=== PATIENT | male | born 1950 | race Caucasian/White ===

== ENCOUNTER 2021-08-27 00:45 | Day surgery (SDC) | payer MEDICARE, BC, SELFPAY ==
[2021-08-11 14:51] VITALS: BMI 22.4
--- NOTE | 2021-08-26 13:58 | WPDANESEPPF ---
Anes - Initial Pre Proc Eval Procedure: Operation Date: 08/27/21 09:00 Proposed Procedures p Screening Colonoscopy - Kumar Ferrer MD Date/Time: 08/26/21 13:58 Surgeon: Kumar Ferrer MD Pre Op Diagnosis: hx of colon polyps Patient Data Age: 71 Gender: M Height: 1.68 m Weight: 63 kg Allergies Allergy/AdvReac Type Severity Reaction Status Date / Time No Known Allergies Allergy Verified 08/27/21 07:42 Home Medications Medication Instructions Recorded Confirmed Type Adult Low Dose Aspirin 81 mg PO DAILY 08/11/21 08/27/21 History Calcium-Vitamin D 2,500 units PO BID 08/11/21 08/27/21 History [place] 3 Fish Oil 600 mg PO DAILY 08/11/21 08/27/21 History lisinopril 10 mg PO DAILY 08/11/21 08/27/21 History magnesium citrate 200 mg PO DAILY 08/11/21 08/27/21 History metoprolol tartrate 12.5 mg PO BID 08/11/21 08/27/21 History niacin 500 mg PO DAILY 08/11/21 08/27/21 History vitamin K 90 mcg PO BID 08/11/21 08/27/21 History Patient hx anesthesia problems: none Family hx anesthesia problems: none Results Review: All pre-operative results and documents have been reviewed as part of the pre-operative evaluation. [facility] Past Medical History Medical History (Updated 08/27/21 @ 08:14 by Kumar Ferrer MD) Hypertension Surgical History Surgical History (Updated 08/26/21 @ 13:59 by Hardeep Sanchez DO) Hx of CABG Family History Family History (System 06/30/21 @ 13:28 by Joann Walker) Mother Hypertension Father Carcinoma of colon Social History Social History (System 06/30/21 @ 13:28 by Joann Walker) Smoking status: Never smoker Alcohol intake: former Alcohol use details: very rare- has not drank in 1.5 years Substance use: never Substance use type: does not use Living arrangements: with family Spiritual care concerns: No Anes - Eval Final PreProcedure Day of Procedure 08/26/21 13:58 Patient weight: normal Heart: regular rate and rhythm Lungs: clear to auscultation and normal air movement Airway: Mallampati scale class II Neurological: alert and oriented Last oral intake: >/= 8 hours ASA classification: III Emergent: no Anesthetic plan: proceed Anesthesia type and monitoring: general GIVS and standard monitoring Results Review: All pre-operative results and documents have been reviewed as part of the pre-operative evaluation. Informed Consent: The patient's anesthetic plan and its attendant risks and benefits were discussed with the patient/family/POA. Questions were solicited and answers provided to the satisfaction of the patient/family/POA.
[2021-08-27 07:43] VITALS: BP 165/70; PULSE 92; RESP 18; TEMP 36.8; O2SAT 99
[2021-08-27] MEDS: LACTATED RINGERS 1,000 ML 150 ML IV CONT (07:53)
--- NOTE | 2021-08-27 08:13 | P.CONGI_ITS ---
Assessment and Plan Assessment and plan (1) History of colon polyps: Code(s): Z86.010 - Personal history of colonic polyps Status: Acute Assessment and Plan: Patient is reported to have had a colon polyp by screening colonoscopy 10 years ago. Follow-up exam is planned today. (2) Family history of colon cancer in father: Code(s): Z80.0 - Family history of malignant neoplasm of digestive organs Status: Acute Assessment and Plan: Patient's father and grandparents have had colon cancer. Plan is for screening colonoscopy now and consider this a 5 year intervals. GI Consult Note Consult date/time: 08/27/21 08:13 HPI: Virgil Bower Jr. is a 71 year old male Presents for screening colonoscopy. Patient reports his current weight appetite bowel movements are normal. He denies abdominal pain. He has had no bleeding. Family history is significant his father had colon cancer his grandparent also had colon cancer. Patient reports having had a colon polyp by a screening exam tender 11 years ago. Most recent exam 5 years ago was unremarkable. He presents today for neoplasia screening. Review of Systems Review of Systems: All systems reviewed & are unremarkable except as noted in HPI and below PMFSH Past Medical History Medical History (Updated 08/27/21 @ 08:14 by Kumar Ferrer MD) Hypertension Surgical History Surgical History (Updated 08/26/21 @ 13:59 by Hardeep Sanchez DO) Hx of CABG Family History Family History (System 06/30/21 @ 13:28 by Joann Walker) Mother Hypertension Father Carcinoma of colon Social History Social History (System 06/30/21 @ 13:28 by Joann Walker) Smoking status: Never smoker Alcohol intake: former Alcohol use details: very rare- has not drank in 1.5 years Substance use: never Substance use type: does not use Living arrangements: with family Spiritual care concerns: No Meds Home Medications and Allergies Home Medications Medication Instructions Recorded Confirmed Type Adult Low Dose Aspirin 81 mg PO DAILY 08/11/21 08/27/21 History Calcium-Vitamin D 2,500 units PO BID 08/11/21 08/27/21 History [place] 3 Fish Oil 600 mg PO DAILY 08/11/21 08/27/21 History lisinopril 10 mg PO DAILY 08/11/21 08/27/21 History magnesium citrate 200 mg PO DAILY 08/11/21 08/27/21 History metoprolol tartrate 12.5 mg PO BID 08/11/21 08/27/21 History niacin 500 mg PO DAILY 08/11/21 08/27/21 History vitamin K 90 mcg PO BID 08/11/21 08/27/21 History Allergies Allergy/AdvReac Type Severity Reaction Status Date / Time No Known Allergies Allergy Verified 08/27/21 07:42 Vital Signs Vital Signs - 24 hr 08/27/21 07:43 Temperature 98.3 F Pulse Rate 92 Respiratory Rate 18 Blood Pressure 165/70 H Pulse Oximetry 99 Exam Narrative: Physical exam reveals patient to be alert. Vital signs stable. HEENT exam is unremarkable. Patient is anicteric. Lungs are clear to auscultation and percussion. Heart is without murmur or extra sounds. Abdominal exam bowel sounds are present soft nontender with no organomegaly. Digital external rectal exam is normal.
[2021-08-27 09:12] VITALS: BP 95/73; PULSE 81; RESP 17; O2SAT 98
[2021-08-27 09:22] VITALS: BP 116/56; PULSE 68; RESP 14; O2SAT 99
[2021-08-27 09:32] VITALS: BP 141/74; PULSE 70; RESP 18; O2SAT 100
--- NOTE | 2021-08-27 09:41 | SUR.PHASEII ---
RN updated patient's on patient's status
== END 2021-08-27 09:48 | disposition home or self-care (01) ==
PROVIDERS: Visit Provider Internal Medicine Gastroenterology
PROC: 0DJD8ZZ Inspection of Lower Intestinal Tract, Via Natural or Artificial Opening Endoscopic (ICD-10-PCS; CPT 45378; principal; 2021-08-27 09:00)
DX: Z12.11 Encounter for screening for malignant neoplasm of colon (principal); Z80.0 Family history of malignant neoplasm of digestive organs; Z86.010 Personal history of colon polyps; K64.8 Other hemorrhoids; I10 Essential (primary) hypertension; Z95.1 Presence of aortocoronary bypass graft
CPT/HCPCS: G0105; J7120

== ENCOUNTER 2023-10-28 07:04 | Outpatient (CLI) | payer MEDICARE, BC, SELFPAY ==
--- NOTE | ~2023-10-28 | XR_ITS ---
AP view of the pelvis and AP and lateral views of the left hip Clinical history: Pain Findings: No acute fracture or dislocation is seen. Osseous alignment is anatomic. Bilateral hip and SI joint spaces are preserved. Soft tissues are unremarkable. Impression: No significant abnormality is seen. Reviewed, dictated and finalized at [facility]. [employer]IST Impression: No significant abnormality is seen.
== END 2023-10-28 07:05 | disposition home or self-care (01) ==
PROVIDERS: Visit Provider Orthopaedic Surgery
DX: M25.552 Pain in left hip (principal)
CPT/HCPCS: 73502

== ENCOUNTER 2024-10-02 08:04 | Outpatient (CLI) | payer MEDICARE, BC, SELFPAY ==
--- OUTSIDE RECORDS SUMMARY | 2024-10-02 08:14 | XMS_ITS | Patient Health Summary ---
Author Organization [facility] Address [address] [place] [address] Care Team Providers Care Punch Finisher Name Role Phone Erwin Araujo MD Primary Care Provider [phone] Joann Escobar Unavailable Manuel Kruger MD Unavailable [phone] Note from [facility],non-owned Affiliates and Associated Physician Practices is amultiple site organization consisting of ambulatory clinics and hospital sitesin [place], [place], [place] and [place]. This disclosure is being madepursuant to the Care Everywhere program and may not contain all information available regarding this patient. Last updated 18.[facility] Allergies No known active allergies Medications * Be aware that medications may not be up to date on this document. Alwaysverify current medications with the patient. * lisinopril (Prinivil; Zestril) 10 MG tablet(Started 07/12/2022) Take 1 (one) tablet by mouth once daily * metoprolol tartrate IR (Lopressor) 25 MG tablet(Started 07/16/2022) Take 0.5 (one-half) tablet by mouth 2 times daily * niacin CR (Niaspan) 500 MG tablet(Started 07/12/2022) Take 2 (two) tablets by mouth once daily * aspirin EC (Ecotrin) 81 MG tablet Take 1 (one) tablet by mouth once daily * Cholecalciferol 50 MCG (1999) Take by mouth 2 times daily * [place]-3 Fatty Acids (Fish Oil) 600 MG(Started 07/07/2021) 700 mg * Menaquinone-7 (K2 PO) Take 180 mcg by mouth once daily * Magnesium Citrate 200 MG TABS(Started 02/07/2023) 200mg daily, 0 * erythromycin (Romycin) 5 MG/GM ophthalmic ointment(Started 04/15/2023) Instill into both eyes 2 times daily Active Problems Problem Noted Date Diagnosed Date 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/2022 Resolved Problems Problem Noted Date Diagnosed Date Resolved Date Asynchronous valve closure syndrome 09/06/2022 09/06/2022 Arteriosclerosis of coronary artery 09/06/2022 09/06/2022 Hyperglycemia 09/06/2022 09/06/2022 Hyponatremia 09/06/2022 09/06/2022 Mixed hyperlipidemia 09/06/2022 023 Statin intolerance 09/06/2022 3 Keratitis 04/19/2018 09/06/2022 Immunizations * COVID MODERNA BIVALENT 6M-11Y 25MCG/0.25ML(Given 07/02/2021) * COVID MODERNA BIVALENT 6M-5Y 10MCG/0.2ML(Given 12/21/2021) * Covid Pfizer primary monovalent 12+ yr 0.3mL Purple cap(Given 11/08/2020, 10/10/2020) * INFLUENZA VACCINE(Given 05/11/2021, 04/29/2021, 05/21/2020, 05/10/2018, 06/06/2017, 06/09/2016) * Pneumococcal Pcv13 Conj(Given 11/22/2014) * ZOSTER VACCINE, LIVE(Given 06/14/2018) Social History Tobacco Use Types Packs/Day Years Used Date Smoking Tobacco: Never Smokeless Tobacco: Never Tobacco Cessation:Counseling Given: Not Answered Alcohol Use Standard Drinks/Week Comments Never 0 (1 standard drink = 0.6 oz pur e alcohol) AUDIT-C Answer Date Recorded Q1: How often do you have a drink containing alcohol? Never 04/15/2023 Q2: How many drinks containi ng alcohol do you have on a typical day when you are drinking? Patient does not drink Q3: How often do you have si x or more drinks on one occasion? Never 04/15/2023 Sex and Gender Information Value Date Recorded Sex Assigned at Not on file Gender Identity Not on file Sexual Orientation Not on file Last Filed Vital Signs Vital Sign Reading Time Taken Comments Blood Pressure 116/65 04/15/2023 10:38 AM CDT Pulse 64 04/15/2023 10:38 AM CDT Temperature 36.7 ??C (98 ??F) 04/15/2023 9:51 AM CDT Respiratory Rate 11 04/15/2023 10:38 AM CDT Oxygen Saturation 96% 04/15/2023 10:38 AM CDT Inhaled Oxygen Concentration - - Weight 63.5 kg (140 lb) 04/15/2023 6:00 AM CDT Height 167.6 cm (5' 6 ) 04/15/2023 6:00 AM CDT Body Mass Index 22.6 04/15/2023 6:00 AM CDT Procedures * CT REPAIR BROW PTOSIS(Performed 04/15/2023) Performed for Ptosis of both eyelids Care Teams Punch Finisher Relationship Specialty Start Date End Date Erwin Araujo MD [address] [place] [address] PCP - General Infectious Disease 09/02/22 Joann Escobar [address] [place] [id number] 09/02/22 Manuel Kruger MD [address] [place], [place] [id number] Cardiology 09/02/22
--- OUTSIDE RECORDS SUMMARY | 2024-10-02 08:14 | XMS_ITS | Clinical Summary ---
Author Organization [facility] Address [address] [place] [address]. [place], [place] [address] [place] [address] Care Team Providers Care Novelty Twister Tender Name Role Phone Regi Sosa MD Primary Care Provider [phone] Allergies Active Allergy Reactions Criticality Noted Date Comments Ezetimibe Other (see comment) 06/28/2024 Sinus pressure Medications aspirin EC (ECOTRIN) 81 MG tablet Take 1 tablet (81 mg total) by mouth daily. Active Vitamin D3 (CHOLECALCIFEROL) 50 mcg tablet Take by mouth 2 (two) times daily. Active niacin CR (NIASPAN) 500 MG tablet Take 1 tablet (500 mg total) by mouth. Active nitroglycerin (NITROSTAT) 0.4 MG SL tablet See Instructions, 25 tablet(s), 4, 4, PLACE 1 TABLET UNDER THE TONGUE NEEDED FOR CHEST PAIN DIRECTED BY DOCTOR, Route to Pharmacy Electronically, [id number], [id number], Instructions Replace Required Details, 167.1, cm, 11/03/23 12:44:00 OPTICIAN APPRENTICE DISPENSING, Height, 65.4, kg, 11/03/23 12:44:00 OPTICIAN APPRENTICE DISPENSING, Weight 01/04/20 24 Active [place]-3 Fatty Acids (RA FISH OIL) 1000 MG Cap Take by mouth. Activ e terbinafine (LAMISIL) 250 MG tablet Take 1 tablet (250 mg total) by mouth daily. 05/09/20 24 Active Menaquinone-7 (VITAMIN K2 OR) Take 90 mcg by mouth. Active Magnesium 200 MG Tab Active evolocumab (REPATHA) 140 MG/ML injection (SYRINGE)Indications :Mixed hyperlipidemia,Angin a concurrent with and due to arteriosclerosis of CABG ([facility]) Inject 1 mL (140 mg total) into the skin every 14 (fourteen) days. 2 mL 2 07/10/20 24 Active Additional Information Patient not taking.Reported on 08/03/2024 metoprolol tartrate (LOPRESSOR) 25 MG tabletIndications:Co ronary artery disease involving rampart coronary artery with angina pectoris, unspecified whether rampart or transplanted heart ([facility]),Primary hypertension Take 0.5 tablets (12.5 mg total) by mouth 2 (two) times daily. 180 tablet 1 08/03/20 24 Active losartan (COZAAR) 25 MG tabletIndications:Co ronary artery disease involving rampart coronary artery with angina pectoris, unspecified whether rampart or transplanted heart ([facility]/HCC),Primary hypertension Take 1 tablet (25 mg total) by mouth daily. 90 tablet 1 08/03/20 24 Active Active Problems Problem Noted Date Diagnosed Date Arteriosclerosis of coronary artery 06/28/2024 Asynchronous valve closure syndrome 06/28/2024 CAD in rampart artery 05/15/2024 Hypertension 05/15/2024 Mixed hyperlipidemia 05/15/2024 S/P CABG x 3 05/15/2024 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/2022 Resolved Problems Problem Noted Date Diagnosed Date Resolved Date Statin intolerance 05/15/2024 Encounters Date Type Department Care Team Description 09/17/2024 [facility] [place] [address] [address] [facility] [address] [place] [address] Regi Sosa MD Results 09/11/2024 [facility] [place] [address] [address] [facility] [address] [place] [address] Regi Sosa MD Question 09/06/2024 [facility]phone [facility] [place] [address] [address] [facility] [address] [place] [address] Regi Sosa MD Referral 09/04/2024 [facility] [place] [address] [address] [facility] [address] [place] [address] Regi Sosa MD Referral 08/11/2024 Scan [facility] Scanned, [facility] 08/10/2024 3:00 PM OPTICIAN APPRENTICE DISPENSING Allied Health/Nurse Visit [place] [address] [place] [address] [address] [place] [address] Regi Sosa MD Allied Health Visit (Pt is here for a BP check) 08/10/2024 Travel 08/04/2024 Scan [facility] HE[facility] INFO SRVCS Scanned, [facility] 08/03/2024 11:00 AM OPTICIAN APPRENTICE DISPENSING Office Visit [place] [address] [place] [address] [place] [address] Regi Sosa MD Sleep Problem; Follow Up; Memory Loss (Pt states [facility] is going to run more test on memory issuess. ) 08/03/2024 Travel 07/31/2024 12:00 PM OPTICIAN APPRENTICE DISPENSING [facility] [address] [address] Regi Sosa MD Holter Monitor 07/24/2024 Telephone [place] [address] [place] [address] [place] [address] Regi Sosa MD Orders 07/17/2024 8:40 AM OPTICIAN APPRENTICE DISPENSING - 07/17/2024 11:59 PM OPTICIAN APPRENTICE DISPENSING Hospital Encounter [facility] [address] [place] [address] Regi Sosa MD Obstructive Sleep Apnea Discharge Disposition: Home or Self Care (Routine Discharge) 07/17/2024 Travel 07/12/2024 Telephone [place] [address] [place] [address] [place] [address] Regi Sosa MD Follow Up Call 07/12/2024 Telephone [place] [address] [place] [address] [place] [address] Regi Sosa MD Medication 07/10/2024 8:20 AM OPTICIAN APPRENTICE DISPENSING [facility] [place] - [address] [place] [address] Regi Sosa MD Follow Up; Hypertension; Hyperlipidemia; Nail Fungus (In toe ) 07/10/2024 Telephone [facility] - [address] [place] [address] Regi Sosa MD Lab Results 07/10/2024 Travel 07/09/2024 Scan [facility] HE[facility] INFO SRVCS Scanned, [facility] from Last 3 Months Immunizations Name Administration Dates Next Due Abrysvo Respiratory Syncytia l Virus (RSV) 0.5 mL, PF 07/26/2024 Influenza (Generic) 06/03/2023,,04/29/2021,2019,05/10/2018,06/06/2017,06/09/2016 Influenza Adult (Generic) 06/21/2024,05/16/2024 MODERNA COVID-19 BIVALENT (1 2+), MRNA, LNP-S, PF 12/21/2021 MODERNA COVID-19 BIVALENT (6 m-5y), MRNA, LNP-S, PF 12/21/2021 Pneumococcal (Prevnar 13) 11/22/2014 Zoster (Zostavax) [address] Unt/0.65Ml 06/14/2018 Social History Tobacco Use Types Packs/Day Years Used Date Smoking Tobacco: Never Smokeless Tobacco: Never Tobacco Cessation:Counseling Given: Yes Comments:Counseled by Dr. Sosa. AUDIT-C Answer Date Recorded Q1: How often do you have a drink containing alcohol? Never 06/28/2024 Q2: How many drinks containi ng alcohol do you have on a typical day when you are drinking? Patient does not drink Q3: How often do you have si x or more drinks on one occasion? Never 06/28/2024 PHQ-2 Answer Date Recorded Patient Health Questionnaire-2 Score 0 06/28/2024 Sex and Gender Information Value Date Recorded Sex Assigned at Not on file Legal Sex Male 7:44 PM CDT Gender Identity Not on file Sexual Orientation Not on file Last Filed Vital Signs Vital Sign Reading Time Taken Comments Blood Pressure 145/70 08/10/2024 3:17 PM OPTICIAN APPRENTICE DISPENSING Pulse 60 08/03/2024 10:50 AM OPTICIAN APPRENTICE DISPENSING Temperature 36.2 ??C (97.2 ??F) 08/03/2024 10:[address] Respiratory Rate 18 08/03/2024 10:50 AM OPTICIAN APPRENTICE DISPENSING Oxygen Saturation 100% 08/03/2024 10:50 AM OPTICIAN APPRENTICE DISPENSING Inhaled Oxygen Concentration - - Weight 64.9 kg (143 lb) 08/03/2024 10:50 AM OPTICIAN APPRENTICE DISPENSING Height 167.6 cm (5' 6 ) 08/03/2024 10:50 AM OPTICIAN APPRENTICE DISPENSING Body Mass Index 23.08 08/03/2024 10:50 AM OPTICIAN APPRENTICE DISPENSING Plan of Treatment Upcoming Encounters Date Type Department Care Team (Late st Contact Info) Description 02/01/2025 1:00 PM CDT Office Visit [facility] - [place] [address] [address] [place] [address] [place] [address] [place] [address] [address] [place] [address] Health Maintenance Due Date Last Done Comments ASCVD Statin 1950 DTaP, Tdap and Td Vaccines (1 - Tdap) 1969 Annual Medicare Wellness Visit 2013 Pneumococcal Vaccine: 65+ Years (2 of 2 - PPSV23 or PCV20) 01/17/2015 11/22/2014 Zoster Vaccines (2 of 3) 08/09/2018 06/14/2018 COVID-19 Vaccine ( season) 2024 12/21/2021, 12/21/2021, 07/02/2021, Additional history exists PHQ-2 ([employer]ician [employer] [place]) 08/29/2024 06/28/2024 Influenza Adult Completed 06/21/2024, 04/29, 06/03/2023, Additional history exists Hepatitis C Completed 06/28/2024 RSV Immunization or 60+ Years Completed 07/26/2024 Meningococcal B Vaccine Aged Out No l onger eligible based on patient's age to complete this topic Meningococcal Vaccine Aged Out No chuckie mariana eligible based on patient's age to complete this topic RSV Immunizations Under 20 Months Aged Out No longer eligible based on patient's age to complete this topic Procedures Procedure Name Priority Date/Time Associated Diagnosis Comments EVENT RECORDER (ECG) UP TO 30 DAYS COMPLETE Routine 09/10/2024 4:03 PM OPTICIAN APPRENTICE DISPENSING Atrial fibrillation, unspecified type (CMS/HCC HHS/HCC) ELECTROCARDIOGRAM (NON MIDMARK ACQUIRED) Routine 08/03/2024 11:55 AM OPTICIAN APPRENTICE DISPENSING Bradycardia Atrial fibrillation, unspecified type (CMS/HCC HHS/HCC) HOME SLEEP STUDY - WATCHPAT Routine 07/17/2024 9:00 AM OPTICIAN APPRENTICE DISPENSING SILVANA (obstructive sleep apnea) BASIC METABOLIC PANEL Routine 07/10/2024 9:16 AM OPTICIAN APPRENTICE DISPENSING Mixed hyperlipidemia Angina concurrent with and due to arteriosclerosis of CABG (CMS/HCC) HEPATITIS C ANTIBODY Routine 06/28/2024 10:40 AM CDT Need for hepatitis C screening test Drug therapy from Last 3 Months or Most Recently Relevant to Health Maintenance Results * EVENT RECORDER (ECG) UP TO 30 DAYS COMPLETE (09/10/2024 4:03 PM OPTICIAN APPRENTICE DISPENSING) Impressions [facility] - 09/10/2024 4:03 PM OPTICIAN APPRENTICE DISPENSING [place], [place] ??[address] MOBILE CARDIAC BATCH UNIT TREATER REPORT Patient Name: Ines Alarcon : 1950 Intellectual Property Paralegal Date: ??08/06/2024 End Date: 09/04/2023 Performed At: ??[place], [place] Interpreting Mobile Home Set Up Person: ?? Ken Ramirez MD PCP: REGI SOSA MD Ordering Provider: Regi Sosa MD INDICATION: atrial fibrillation DURATION OF MONITORIN days NUMBER OF TRANSMISSIONS: ??19 (13 auto transmissions, 6 manual, 0 periodic) INTERPRETATION: A 30-day mobile cardiac monitoring tech analyzed. Interpretable data was 19 days, 5 hours and 28 minutes (65% of monitoring period). The baseline rhythm was sinus bradycardia. There was not atrial fibrillation or atrial flutter observed. A minimum heart rate was 42 bpm on 08/17/2024 at 10:33 PM. A maximum heart rate in sinus rhythm was 74 bpm on 09/01/2024 at 6:15 PM. There were no pauses observed. The manual triggered episodes had no associated reported symptoms and correlated with sinus bradycardia. The auto triggered episodes were for brief non sustained supraventricular runs, isolated premature ventricular complexes, ventricular couplets, a ventricular triplets, and occasional atrial ectopy. The supraventricular ectopy burden was high at 12%. CONCLUSION: 30-day mobile cardiac telemetry was only notable for a low average heart rate of 56 bpm and frequent supraventricular ectopy. There was no atrial fibrillation observed. Interpreting Mobile Home Set Up Person: ?? Dr. Ken Ramirez us Regi Sosa MD CV VASCULAR ORDERABLES Final Res ult [facility] * EKG WELCHALLEN ACQUIRED (08/03/2024 11:55 AM OPTICIAN APPRENTICE DISPENSING) 08/03/2024 11:5 5 AM OPTICIAN APPRENTICE DISPENSING Narrative [facility] - 08/09/2024 11:18 AM OPTICIAN APPRENTICE DISPENSING ?[facility] ?[address] [place] [address] ? Test Date: ?2024-08-03 Pat Name: ? INES ALARCON ?Department: ?? 171 ? Room: ? Gender: ? Male ? Human Resources Assistant Manager: ?? : ?1950 ? Requested By: NUEKI NAATE Order Number: [id number] ?Reading MD: ?? Nueki Naate ? Measurements Intervals ?[place] ? Rate: ? 54 ? P: ?63 KS: ? 179 ?QRS: ?2 QRSD: ? 89 ? T: ?69 QT: ? 407 ? QTc: ?387 ? Interpretive Statements SINUS BRADYCARDIA POSSIBLE LEFT ATRIAL ENLARGEMENT POSSIBLE RIGHT VENTRICULAR CONDUCTION DELAY CIAN APPRENTICE DISPENSING Procedure Note Regi Sosa MD - 08/09/2024 [facility] [address] [place] [address] Test Date: 2024-08-03 Pat Name: INES ALARCON Department: 171 Room: Gender: Male Human Resources Assistant Manager: : 1950 Requested By: REGI SOSA Order Number: [id number] Reading MD: Regi Sosa Measurements Intervals [place] Rate: 54 P: 63 KS: 179 QRS: 2 QRSD: 89 T: 69 QT: 407 QTc: 387 Interpretive Statements SINUS BRADYCARDIA POSSIBLE LEFT ATRIAL ENLARGEMENT POSSIBLE RIGHT VENTRICULAR CONDUCTION DELAY CIAN APPRENTICE DISPENSING us Regi Sosa MD PROCEDURES-ORDERABLE NO CHARGE F inal Result [facility] * Home Sleep Study - WatchPat (99311/[id number]) (07/17/2024 9:00 AM OPTICIAN APPRENTICE DISPENSING) Narrative [facility] - 07/17/2024 9:00 AM OPTICIAN APPRENTICE DISPENSING Anselmo Pendleton MD ? 07/24/2024 10:30 AM Patient Information First Name: INES Last Name: AGNES ID: [id number] Date: 1950 Age: 74 Gender: Male BMI: 22.7 (W=141 lb, H=5' 6 Sleep Study Information Study Date:07/18/2024 Referring Physician Information First Name: Last Name: REGI SOSA 5.3.82.3 / 4.2.1210 / 82 S/H/A Version: WATCHPAT HOME SLEEP APNEA TEST REPORT SUMMARY DATA SLEEP STUDY/ARCHITECTURE: This patient was studied using a WatchPAT home sleep study device, The evaluation was initiated on 07/18/2024 at 7:47:17 PM and was stopped at 5:11:38 AM. The total recording time was 9 hrs, 24 min with total sleep evaluation of 8 hrs, 24 min. ANALYSIS: (pAHI = PAT Apnea-Hypopnea Index, pRDI = PAT Respiratory Disturbance Index) Total pAHI 4%: ??1.6 ?? Total pRDI: ??4.5 Average Sleep Oxygen Saturation: ?? 96 Minimum Sleep Oxygen Saturation: ??87 Mean Heart Rate During Sleep: ??51 Afib Total Duration: ??0:08:36 Afib Longest Duration: ??0:02:05 (Afib events < 60 seconds may be artifact) Premature Beats per Minute: ??5.8 Rev. ?? Printed on:07/24/2024 07/18/2024,[id number],1950,Male *The automatic analysis events or stages have been edited. 539 Page 1 of 2 Sleep Study Report SUMMARY/DIAGNOSIS 1.) No Evidence of Obstructive Sleep Apnea. 2.) Bradycardia was noted during this study. 3.) Premature beats were noted and atrial fibrillation was suspected during this study. 4.) Snoring was noted during this study. RECOMMENDATIONS Treatment for primary snoring may be considered. Bradycardia and premature beats were noted and atrial fibrillation was suspected during this study. Given that the patient's past medical history and current medication list wasn't available during interpretation of this study, clinical correlation of these issues may be indicated based upon this patient's underlying medical conditions and current medications. This patient should maintain good sleep hygiene techniques, maintain a consistent sleep/wake schedule with adequate hours of sleep, and avoid hazardous activities when sleepy. The patient should be cautioned about factors that may potentially exacerbate snoring and other sleep-related issues, such as RESOURCE DIRECTOR depressants, especially at bedtime. Raw data reviewed and electronically signed by: Anselmo Pendleton ??on 07/24/2024 10:29:11 AM at ??4:29:16PM, [facility] us Regi Sosa MD SLEEP CENTER ORDERABLES Final Re sult [facility] [address] [place] [address], * (ABNORMAL) BASIC METABOLIC PANEL (07/10/2024 9:16 AM OPTICIAN APPRENTICE DISPENSING) [facility] SODIUM S/P/B 142 136 - 145 MMOL/L 07/10/2024 2:54 PM [facility] POTASSIUM S/P/B 5.1 3.5 - 5.1 MMOL/L 07/10/2024 2:54 PM [facility] CHLORIDE S/P/B 105 98 - 107 MMOL/L 07/10/2024 2:54 PM [facility] CO2 31.1 21 - 32 MMOL/L 07/10/2024 2:54 PM [facility] GLUCOSE 105(H) 70 - 99 MG/DL 07/10/2024 2:54 PM [facility] BUN 21(H) 7 - 18 MG/DL 07/10/2024 2:54 PM [facility] CREATININE S/P/B 0.88 0.70 - 1.30 MG/DL 07/10/2024 2:54 PM [facility] CALCIUM S/P/B 9.3 8.4 - 10.5 MG/DL 07/10/2024 2:54 PM [facility] ANION GAP 5.9 5 - 15 MMOL/L 07/10/2024 2:54 PM [facility] Comment:REFERENCE RANGE NOT ESTABLISHED OSMOLALITY (CALC) 297 MOSM/KG 024 2:54 PM [facility] Comment:REFERENCE RANGE NOT ESTABLISHED GFR ESTIMATE 89(L) >90 ML/MIN/1. 73 M2 07/10/2024 2:54 PM [facility] GFR NOTES GFR REFERENCE S: 07/10/2024 2:54 PM [facility] Comment: THE ESTIMATED GFR IS CALCULATED USING THE 2020 CKD-EPI EQUATION. THE FOLLOWING CATEGORIES FOR GRADING RENAL FUNCTION ARE RECOMMENDED BY THE INTERNATIONAL SOCIETY OF NEPHROLOGY (KDIGO 2012 CLINICAL PRACTICE GUIDELINE). G1,NORMAL OR HIGH: >89 ml/min/1.73 m2 G2,MILDLY DECREASED: 60-89 ml/min/1.73 m2 G3A,MILDLY TO MODERATELY DECREASED: 45-59 ml/min/1.73 m2 G3B,MODERATELY TO SEVERELY DECREASED: 30-44 ml/min/1.73 m2 G4,SEVERELY DECREASED: 15-29 ml/min/1.73 m2 G5,KIDNEY FAILURE: <15 ml/min/1.73 m2 07/10/2024 9:16 AM OPTICIAN APPRENTICE DISPENSING Regi Sosa MD LABORATORY Final Result Performing Organization Address City/State/[facility] Co de Phone Number [facility] [address] [place] [address], [place] [phone] * HEPATITIS C ANTIBODY (06/28/2024 10:40 AM CDT) HEPATITIS C AB NON-REACTI VE NON-REACT DARIUS 06/28/2024 6:58 PM CDT [facility] Comment: ANTIBODIES TO HCV NOT DETECTED. DOES NOT EXCLUDE THE POSSIBILITY OF EXPOSURE TO HCV. 06/28/2024 10:4 0 AM CDT Regi Sosa MD LABORATORY Final Result Performing Organization Address City/[facility] Co de Phone Number [facility] [address] [place] [address], [place] [phone] from Last 3 Months or Most Recently Relevant to Health Maintenance Insurance MEDICARE [facility] Care Teams Novelty Twister Tender Relationship Specialty Start Date End Date Regi Sosa MD [address] [facility] [address] [place] [address] PCP - General INTERNAL MEDICINE 05/16/24
--- OUTSIDE RECORDS SUMMARY | 2024-10-02 08:14 | XMS_ITS | Referral Summary ---
Author Organization [facility] Address [address] [place] [address] Care Team Providers Care Payroll Lead Name Role Phone Erwin Araujo MD Primary Care Provider [phone] Joann Escobar Unavailable Manuel Kruger MD Unavailable [phone] Source Comments [facility],non-owned Affiliates and Associated Physician Practices is amultiple site organization consisting of ambulatory clinics and hospital sitesin [place], [place], [place] and [place]. This disclosure is being madepursuant to the Care Everywhere program and may not contain all information available regarding this patient. Last updated 18.[facility] Allergies No known active allergies Medications * Be aware that medications may not be up to date on this document. Alwaysverify current medications with the patient. Medication Sig Dispensed Refills Start Date End Date Status lisinopril (Prinivil; Zestril) 10 MG tablet Take 1 (one) tablet by mouth once daily 07/12/2022 Active metoprolol tartrate IR (Lopressor) 25 MG tablet Take 0.5 (one-half) tablet by mouth 2 times daily 07/16/2022 Active niacin CR (Niaspan) 500 MG tablet Take 2 (two) tablets by mouth once daily 07/12/2022 Active aspirin EC (Ecotrin) 81 MG tablet Take 1 (one) tablet by mouth once daily Active Cholecalciferol 50 MCG (1999 UT) Take by mouth 2 times daily Active Una-3 Fatty Acids (Fish Oil) 600 MG 700 mg 07/07/2021 Active Menaquinone-7 (K2 PO) Take 180 mcg by mouth once daily Active Magnesium Citrate 200 MG TABS 200mg daily, 0 02/07/2023 Active erythromycin (Romycin) 5 MG/GM ophthalmic ointment Instill into both eyes 2 times daily 3.5 g 04/15/2023 Active Active Problems Problem Noted Date Diagnosed Date 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/2022 Resolved Problems Problem Noted Date Diagnosed Date Resolved Date Asynchronous valve closure syndrome 09/06/2022 09/06/2022 Arteriosclerosis of coronary artery 09/06/2022 09/06/2022 Hyperglycemia 09/06/2022 09/06/2022 Hyponatremia 09/06/2022 09/06/2022 Mixed hyperlipidemia 09/06/2022 023 Statin intolerance 09/06/2022 3 Keratitis 04/19/2018 09/06/2022 Immunizations Name Administration Dates Next Due COVID MODERNA BIVALENT 6M-11 Y 25MCG/0.25ML 07/02/2021 COVID MODERNA BIVALENT 6M-5Y 10MCG/0.2ML 12/21/2021 Covid Pfizer primary monoval ent 12+ yr 0.3mL Purple cap 11/08/2020,10/10/2020 INFLUENZA VACCINE 05/11/2021, 1,05/21/2020,2017,06/06/2017,06/09/2016 Pneumococcal Pcv13 Conj 11/22/2014 ZOSTER VACCINE, LIVE 06/14/2018 Social History Tobacco Use Types Packs/Day [...] Mass Index 22.6 04/15/2023 6:00 AM CDT Functional Status Functional Status Response Date of Assess ment Is person deaf or have serious hearing difficult y? No 04/15/2023 Is person blind or have serious difficulty seein g? No 04/15/2023 Does person have serious dif ficulty walking/climbing stairs? No 04/15/2023 Does person have difficulty dressing/bathing? No 04/15/2023 Does person have difficulty doing errands alone? No 04/15/2023 Cognitive Status Response Date of Assessm ent Does person have difficulty concentrating/remembering/making decisions? No 04/15/2023 Plan of Treatment Not on file Care Teams Payroll Lead Relationship Specialty Start Date End Date Erwin Araujo MD [address] [place] [address] PCP - General Infectious Disease 09/02/22 Joann Escobar [address] [place] [address] 09/02/22 Manuel Kruger MD [address] [place] [address] Cardiology 09/02/22
--- OUTSIDE RECORDS SUMMARY | 2024-10-02 08:14 | XMS_ITS | Clinical Summary ---
Author Organization [facility] field Address [address] [place] [address] Phone Care Team Providers Care Hawk Missile Air Defense Artillery Name Role Phone Erwin Araujo MD Primary Care Provider [phone] Allergies No known active allergies Medications niacin (NIASPAN) 500 mg Extended Release 24 hour tablet Take 500 mg by mouth daily at bedtime. Active metoprolol tartrate (LOPRESSOR) 25 mg tablet Take 12.5 mg by mouth 2 times daily. Active lisinopril (PRINIVIL) 10 mg tablet Take 10 mg by mouth daily. Active aspirin (ECOTRIN EC) 81 mg Tablet, Delayed Release (E.C.) Take 81 mg by mouth daily. Active VITAMIN K2 ORAL Take by mouth. Active cholecalciferol, Vitamin D3, (VITAMIN D3) 2,000 unit Tablet Take by mouth 2 times daily. Active magnesium citrate solution Take 400 mL by mouth one time only. Active Fish Oil-[place]-3 Fatty Acids 300-500 mg Capsule Take by mouth. Active Family History Medical History Relation Name Comments Colon Cancer Father Relation Name Status Comments Father Social History Tobacco Use Types Packs/Day Years Used Date Smoking Tobacco: Never Assessed Sex and Gender Information Value Date Recorded Sex Assigned at Not on file Legal Sex Male 3:32 PM CDT Gender Identity Not on file Sexual Orientation Not on file Plan of Treatment Health Maintenance Due Date Last Done Comments DTAP/TDAP/TD VACCINES (1 - Tdap) 1967 PNEUMOCOCCAL VACCINE 65+ YEA RS (1 of 1 - PCV) 1998 ZOSTER VACCINE (1 of 2) 1998 RSV VACCINE (60+ or ) (1 - 1-dose 75+ series) 2023 INFLUENZA VACCINE (#1) 2024 COLORECTAL SCREENING Discontinued 07/14/2015, 06/16/2010, 01/08/2008 Colorectal Cancer Screening Discontinued FIT-DNA Q 3 years Discontinued FIT/FOBT Q 1 year Discontinued Flex Sig/CT Colonography Q 5 years Discontinued Procedures Procedure Name Priority Date/Time Associated Diagnosis Comments ENDOSCOPY, COLON, SCREENING Routine 07/14/2015 from Last 3 Months or Most Recently Relevant to Health Maintenance Results * (ABNORMAL) ENDOSCOPY, COLON, SCREENING (07/14/2015) us Erwin Hartley MD GI PROCEDURE ORDERABLES Edited R esult - Final [facility] from Last 3 Months or Most Recently Relevant to Health Maintenance Insurance Care Teams [employer] Relationship Specialty Start Date End Date Erwin Araujo MD [address] [place] [id number] PCP - General 09/02/15
--- OUTSIDE RECORDS SUMMARY | 2024-10-02 08:14 | XMS_ITS | Clinical Summary ---
Author Organization [facility] Address [address] [place] [address] Care Team Providers Care Toy Packer Name Role Phone Erwin Araujo MD Primary Care Provider [phone] Joann Escobar Unavailable Manuel Kruger MD Unavailable [phone] Source Comments [facility],non-owned Affiliates and Associated Physician Practices is amultiple site organization consisting of ambulatory clinics and hospital sitesin [place], [place], [place] and [place]. This disclosure is being madepursuant to the Care Everywhere program and may not contain all information available regarding this patient. Last updated 18.[facility] Allergies No known active allergies Medications * [...] Take by mouth 2 times daily Active [place]-3 Fatty Acids (Fish Oil) 600 MG 700 [...] Pcv13 Conj 11/22/2014 ZOSTER VACCINE, LIVE 06/14/2018 Family History Medical History Relation Name Comments Glaucoma Father Relation Name Status Comments Father Social [...] Mass Index 22.6 04/15/2023 6:00 AM CDT Plan of Treatment Health Maintenance Due Date Last Done Comments MEDICARE AWV ? 12 MONTHS 1950 HEPATITIS C SCREENING 05/13/1966 DTAP/TDAP/TD VACCINES (1 - Tdap) 1967 PNEUMOCOCCAL VACCINE 50+ (2 of 2 - PPSV23) 11/23/2015 11/22/2014 ZOSTER VACCINE (2 of 3) 08/09/2018 06/14/2018 Respiratory Syncytial Virus (RSV) Vaccine Pt: or over 60 yrs (1 - 1-dose 75+ series) 2023 COVID-19 VACCINE (3 - season) 2024 12/21/2021, 07/02/2021, 11/08/2020, Additional history exists INFLUENZA VACCINE (#1) 2024 , 04/29/2021, 05/21/2020, Additional history exists DEPRESSION SCREENING 08/29/2024 HEPATITIS B VACCINE Aged Out No longe r eligible based on patient's age to complete this topic HIB VACCINE Aged Out No longer eligi ble based on patient's age to complete this topic HPV VACCINE Aged Out No longer eligi ble based on patient's age to complete this topic MENINGOCOCCAL (Group B) VACCINE Aged Out No longer eligible based on patient's age to complete this topic MENINGOCOCCAL VACCINE Aged Out No chuckie mariana eligible based on patient's age to complete this topic Care Teams Toy Packer Relationship Specialty Start Date End Date Erwin Araujo MD [address] [facility] [address] [place] [address] PCP - General Infectious Disease 09/02/22 Joann Escobar [address] [place] [id number] 09/02/22 Manuel Kruger MD [address] [place] [address] Cardiology 09/02/22
--- NOTE | 2024-10-29 08:54 | WPDSLEEPSTUD ---
Sleep Study Date of Study: 10/02/24 Ordering Provider: Regi SosaMD Interpreting Physician: Marleny Mcdaniel, Sleep Study Type: Polysomnogram Height: 1.68 m Weight: 63.503 kg Body Mass Index: 22.6 Neck Circumference (inches): 15 [place]: 12 Reason for Sleep Study Daytime hypersomnia Sleep History The patient is a 74-year-old male with previously diagnosed sleep apnea that had a sleep study ordered by his primary care physician for evaluation of sleep apnea. The patient denies awakening from sleep short of breath. He denies awakening at night with heartburn, belching or cough. He occasionally snores but it is frequently loud enough that others complain. He denies having trouble sleeping when he has a cold. He denies waking up gasping for air throughout the night. He denies having breathing problems at night observed by himself or others. He rarely sweats excessively at night. He denies having heart palpitations or irregular heartbeats during the night. He occasionally falls asleep during the day but never while driving. He denies sleep paralysis and cataplexy. He denies having trouble at school or work due to sleepiness. He rarely experiences vivid dreamlike scenes upon awakening or falling asleep. He denies feeling afraid of going to sleep. He denies having nightmares. He occasionally remembers his dreams. He rarely has thoughts racing through his mind. He denies feeling sad, depressed or anxious. He denies having muscular tension. He denies noticing parts of his body jerk. He denies kicking during the night. He denies having crawling and aching feelings in his legs and denies having leg pain during the night. He denies grinding his teeth during sleep and denies awakening with morning jaw pain. He denies being bothered by pain during the day and denies being awakened by pain during the night. He frequently wakes up feeling stiff in the morning. He denies waking up with sore or achy muscles. He occasionally wakes up with pain in the neck, spine and other joints. He goes to bed at 7:30 p.m. on both weekdays and weekends. It takes him 10 minutes to fall asleep. He wakes up 1-2 times throughout the night to urinate is able to fall back asleep within a few minutes. He wakes up at 5:00 a.m. on both weekdays and weekends. He typically gets 8 hours of sleep per night. He will stay in bed for 5-15 minutes after waking up in the morning. He currently lives with his spouse. He denies consuming any caffeinated beverages within 2 hours of bedtime. He denies engaging in physical exercise before bedtime. He rarely watches television before falling asleep. He rarely take naps in the afternoon or the evening but they are refreshing. He denies consuming any caffeinated beverages throughout the day. He denies tobacco, alcohol and recreational drug use. [facility] Past Medical History Medical History History of postoperative nausea History of stress test Sleep apnea Hyperlipidemia Hypertension Surgical History Surgical History History of penectomy treating peyronies disease History of dental surgery History of heart bypass surgery (~05/2006) Triple Bypass Hx of CABG Family History Family History Mother Hypertension Heart disease Father Carcinoma of colon Skin cancer Social History Social History Smoking status: Never smoker Alcohol intake: former Alcohol use details: very rare- has not drank in 1.5 years Substance use: never Substance use type: does not use Do You Feel Safe in your Home?: Yes Lack of Transportation: No Lack of Food: Never True Current Housing: I Have Housing Concerned About Future Housing: No Difficulty Paying Gas/Electric Bills: No Difficulty Paying for Meds: No Currently Unemployed: No Education: Master's Degree or Higher Difficulty w/ Childcare or Family Care: No Living arrangements: with family Spiritual care concerns: No Medications Home Medications ?Medication ?Instructions ?Recorded ?Confirmed ?Type Adult Low Dose Aspirin 81 mg PO DAILY 08/11/21 11/23/23 History lisinopril 10 mg tablet 10 mg PO DAILY 08/11/21 11/23/23 History magnesium citrate 200 mg PO DAILY 08/11/21 11/23/23 History metoprolol tartrate 25 mg tablet 12.5 mg PO BID 08/11/21 11/23/23 History vitamin K 90 mcg PO BID 08/11/21 11/23/23 History nitroglycerin 0.4 mg sublingual 0.4 mg sublingual Q5M PRN 08/17/22 11/23/23 History tablet cholecalciferol (vitamin D3) 62.5 mcg PO 10/27/22 11/23/23 History mcg (2,500 unit) capsule Sleep Procedure A full night polysomnogram using the [employer] multi-channel system recorded the standard physiologic parameters including EEG, EOG, submentalis EMG, anterior tibialis EMG, EKG, body position, nasal and oral airflow using nasal pressure sensor and thermistor.? Respiratory parameters of chest and abdominal movements were recorded with Respiratory Inductance Plethysmography belts. Oxygen saturation was recorded by pulse oximetry. Video monitoring was also performed. Sleep stages, periodic limb movements, and EEG arousals were scored in 30 second epochs according to the criteria of the AASM Scoring Manual. The Apnea-Hypopnea Index was calculated using CMS guidelines for definition of hypopnea with 4% O2 desaturations while scoring respiratory events. Sleep Architecture The total recording time was 434.2 minutes.? The total sleep time was 163.5 minutes. Sleep latency was 14.0 minutes. REM latency was 169.5 minutes. Sleep efficiency was 37.7%. The patient had 46 awakenings for an awakening index of 16.9. Wake after sleep onset time was 256.5 minutes. The patient spent 53.5 minutes, 32.7% of total sleep time in Stage N1. The patient spent 85.0 minutes, 52.0% in Stage N2. The patient spent 18.5 minutes, 11.3% in Stage N3. The patient spent 6.5 minutes, 4.0% in Stage REM sleep. Respiratory Analysis The patient had 7 hypopneas, 26 obstructive apneas and 1 central apnea for an overall Apnea Hypopnea Index of 12.5. The REM Apnea Hypopnea Index was 9.2. The NREM Apnea Hypopnea Index was 13.0. The patient had a Central Apnea Hypopnea Index of 0.4. There was no evidence of Carlyle-Moody Respirations. Arousals There were 64 total arousals for an arousal index of 23.5. There were 23 spontaneous arousals for an index of 8.4. There were 28 arousals due to respiratory events for an index of 10.3. There were 0 arousals due to periodic limb movements for an index of 0.? There were 13 arousals due to isolated limb movements for an index of 4.8. Periodic Limb Movements The patient had 32 isolated limb movements with an index of 11.7. The patient had 0 periodic limb movements with an index of 0. Patient had a total of 32 limb movements with a total limb movement index of 11.7. Oximetry Data The patient had an average oxygen saturation of 96.0% in sleep with a minimum oxygen saturation of 88.0% and a maximum oxygen saturation of 98.0%. The patient had 18 oxygen desaturations that were 4% or greater resulting in an Oxygen Desaturation Index of 6.6.? The patient spent 0.1 minutes of total sleep time with an oxygen saturation below 88%. Snoring Profile Mild snoring was present throughout the study. Cardiac Profile The EKG showed normal sinus rhythm. Occasional premature beats were seen. The patient had an average pulse rate of 55.9 bpm with a minimum pulse of rate of 50.0 bpm and a maximum pulse rate of 74.0 bpm.? EEG Profile No signs of seizure activity seen. Assessment and Plan Assessment and Plan (1) SILVANA (obstructive sleep apnea): Code(s): G47.33 - Obstructive sleep apnea (adult) (pediatric) Status: Acute Assessment and Plan: The patient had an overall AHI of 12.5 with desaturation down to 88%. This is consistent with mild sleep apnea. Due to the patient's hypertension, he qualifies for treatment. I recommend that the patient have a CPAP Titration study with the use of a hypnotic (Lunesta 2-3 mg or Ambien 5-10 mg) to ensure we obtain enough sleep data. If insurance will not approve an in-lab sleep study, the patient can do a trial of AutoPAP. A mandibular advancement device is also an acceptable treatment option. Data The data obtained during this sleep study is adequate for interpretation. Certification This sleep study has been reviewed by a board certified sleep medicine physician.
[2024-10-29 10:57] VITALS: BMI 22.6
== END 2024-10-03 07:30 | disposition home or self-care (01) ==
LOC: ANHCSM 08:04
PROVIDERS: Visit Provider Internal Medicine
DX: G47.33 Obstructive sleep apnea (adult) (pediatric) (principal); G47.00 Insomnia, unspecified
CPT/HCPCS: 95810

== ENCOUNTER 2024-11-07 11:56 | Outpatient (CLI) | payer MEDICARE, BC, SELFPAY ==
--- NOTE | ~2024-11-07 | DEXA_ITS ---
Bone Density Report Name: INES ALARCON Age: 74 Sex: Male Ethnicity: White Date of : 1950 Indication: screening for osteoporosis; Referring Provider: KATIE, NOELLE Study: Bone densitometry was performed. Exam Date: November 07, 2024 Accession number: [id number] Bone Density: Region BMD T-score Z-score Classification AP Spine(L1-L4) 0.957 -1.2 -0.1 Osteopenia Femoral Neck (Left) 0.678 -1.8 -0.5 Osteopenia Total Hip (Left) 0.845 -1.2 -0.4 Osteopenia Femoral Neck (Right) 0.656 -2.0 -0.6 Osteopenia Total Hip (Right) 0.851 -1.2 -0.3 Osteopenia Femoral Neck Mean 0.667 -1.9 -0.5 Osteopenia Total Hip Mean 0.848 -1.2 -0.3 Osteopenia World Health Organization criteria for BMD impression classify patients as: Normal (T-score at or above -1.0), Osteopenia (T-score between -1.0 and -2.5), or Osteoporosis (T-score at or below -2.5). 10-year Fracture Risk(1): Major Osteoporotic Fracture 8.2% Hip Fracture 3.0% Reported Risk Factors: [place] (), Neck BMD=0.656, BMI=23.2 (1) FRAX(R) Version 3.08. Fracture probability calculated for an untreated patient. Fracture probability may be lower if the patient has received treatment. Clinical Information Provided by Patient: Has used the following medications: Vitamin D Patient maximum height was 66 No regular weight bearing exercise Impression: The patient has low bone mass, based on the Right Femoral Neck T-score. Discussion: BONE DENSITY IS LOW AT ONE OR MORE SKELETAL SITES. This patient's lowest T-score is low at one or more skeletal sites. It meets the World Health Organization's (WHO) criteria for ?low bone mass? (T-score between -1.0 and -2.5). The patient's 10-year risk of fracture as calculated by FRAX is less than the threshold where pharmacological therapy is recommended by the National Osteoporosis Foundation (NOF). However, all treatment decisions require clinical judgment and consideration of individual patient factors, including patient preferences, comorbidities, previous drug use, risk factors not captured in the FRAX model (e.g., frailty, falls, vitamin D deficiency, increased bone turnover, interval significant decline in bone density) and possible under or overestimation of fracture risk by FRAX. The patient should follow a healthful lifestyle (good nutrition with adequate calcium and vitamin D, and appropriate weight-bearing exercise). Follow-Up: Consider repeating this study in 2 to 3 years to reassess this patient's status, or sooner if there is some new clinical indication. Reported by: SUZANNA on 11/07/2024 12:19:00 PM. Reviewed, dictated and finalized at location A.
--- OUTSIDE RECORDS SUMMARY | 2024-11-07 13:35 | XMS_ITS | Continuity of Care Document ---
Author Name [facility] Organization [facility] Care Team Providers Care Lead Software Test Engineer Name Role Phone [facility] Unavailable Unavailable Problems Combined list of problems from Department of Defense and Veterans Affairs facilities. It does not include entries that were removed or entered in error. Problem Status Onset Date Problem Type Date of Resolution Comments Source visit for: administrative purpose Active Condition Pt OSHA respirator questionnaire completed. Pt qualified for respirator use and fit testing. Pt will continue to see chargeback specialist q6 months and cement cutter q 3-4 months. Pt to re-accomplish questionnaire with any significant change in medical condition. He denies present/recent angina. DoD Encounters Combined list of: 1) Encounters from Department of Veterans Affairs facilities going backup to the last 18 months, not all VA inpatient encounters are included; 2) Encounters from the Department of Defense facilities going backup to 280 months. Location Location Details Encounter Type Encounter Number Reason For Visit Attending Provider ADM Date DC Date Status Disposition Source [facility] Joseph ADAIR [place] [place] [facility]PATIENT [id number] [place] CARLI Sawyer 01/11 Released w/o Limitations [facility] Joseph ADAIR [place] [place]S cott Flight Medicin e Tm) Social History Combined list of available smoking, tobacco, and other social history from Department of Defense and Veterans Affairs facilities. Social History Type Response Date Comment Sourc e This section is an empty social history section. [facility]
--- OUTSIDE RECORDS SUMMARY | 2024-11-07 13:35 | XMS_ITS | Clinical Summary ---
Author Organization [facility] Address [address] [place] [address] Care Team Providers Care Airways Control Specialist Name Role Phone Erwin Araujo MD Primary Care Provider [phone] Joann Escobar Unavailable Manuel Kruger MD Unavailable [phone] Source Comments [facility],non-owned Affiliates and Associated Physician Practices is amultiple site organization consisting of ambulatory clinics and hospital sitesin [place], [place], [place] and [place]. This disclosure is being madepursuant to the Care Everywhere program and may not contain all information available regarding this patient. Last updated 18.[facility] Allergies No known active allergies Medications [...] Take by mouth 2 times daily Active [place]-3 Fatty Acids (Fish Oil) 600 MG 700 [...] 64 04/15/2023 10:38 AM CDT Temperature 36.7 C (98 F) 04/15/2023 9:51 AM CDT Respiratory Rate 11 04/15/2023 10:38 AM CDT Oxygen Saturation 96% 04/15/2023 10:38 AM CDT Inhaled Oxygen Concentration - - Weight 63.5 kg (140 lb) 04/15/2023 6:00 AM CDT Height 167.6 cm (5' 6 ) 04/15/2023 6:00 AM CDT Body Mass Index 22.6 04/15/2023 6:00 AM CDT Plan of Treatment Health Maintenance Due Date Last Done Comments MEDICARE AWV 12 MONTHS 1948 HEPATITIS C SCREENING 05/13/1966 [...] complete this topic MENINGOCOCCAL (Group B) VACCINE SHARED DECISION-MAKING Aged Out No longer eligible based on patient's age to complete this topic MENINGOCOCCAL GROUPS A/C/Y/W VACCINE Aged Out No longer eligible based on patient's age to complete this topic Care Teams Airways Control Specialist Relationship Specialty Start Date End Date Erwin Araujo MD [address] [facility] [address] [place] [address] PCP - General Infectious Disease 09/02/22 Joann Escobar [address] [place] [phone] 09/02/22 Manuel Kruger MD [address] [place] [address] Cardiology 09/02/22
--- OUTSIDE RECORDS SUMMARY | 2024-11-07 13:35 | XMS_ITS | Referral Summary ---
Author Organization [facility] Address [address] [place] [address] Care Team Providers Care Band Straightener Name Role Phone Regi Sosa MD Primary Care Provider [phone] Encounters Date Type Department Care Team Description 10/11/2024 Telephone [facility] [facility] [address] [place] [address] Ned Silva 10/01/2024 1:45 PM OCCUPATIONAL HEALTH RN Office Visit [facility] [place] [address] [facility] [address] [place] [address] Jessie Engle NP Memory loss (Primary Dx) 09/24/2024 Telephone [facility] [address] [facility] 6[address] [place] [address] [place] [address] Ned Silva 08/24/2024 Telephone [facility] [address] [place] [address] Sara Burt RMA from Last 3 Months Allergies Active Allergy Reactions Criticality Noted Date Comments Ezetimibe Other (See comments) Low 06/28/2024 Sinus pressure Medications metoprolol (LOPRESSOR) 25 mg tablet TK SS T PO BID 1 03/20/2018 Active niacin ER (NIASPAN) 500 mg CR tablet TK 2 TS PO QD 3 03/20/2018 Active aspirin 81 mg tablet Take 1 tablet (81 mg total) by mouth daily Active fish oil-dha-epa 1,200-144-216 mg capsule Take by mouth. 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 Social History Tobacco Use Types Packs/Day Years Used Date Smoking Tobacco: Never Smokeless Tobacco: Never Tobacco Cessation:Counseling Given: No Sex and Gender Information Value Date Recorded Sex Assigned at Not on file Legal Sex Male 10:35 PM OCCUPATIONAL HEALTH RN Gender Identity Not on file Sexual Orientation Not on file Last Filed Vital Signs Vital Sign Reading Time Taken Comments Blood Pressure 134/60 10/01/2024 1:53 PM OCCUPATIONAL HEALTH RN Pulse 62 10/01/2024 1:53 PM OCCUPATIONAL HEALTH RN Temperature 36.2 C (97.2 F) 10/01/2024 1:53 PM OCCUPATIONAL HEALTH RN Respiratory Rate - - Oxygen Saturation - - Inhaled Oxygen Concentration - - Weight 65.8 kg (145 lb) 10/01/2024 1:53 PM OCCUPATIONAL HEALTH RN Height 167.6 cm (5' 5.98 ) 10/01/2024 1:[address] Body Mass Index 23.41 10/01/2024 1:53 PM OCCUPATIONAL HEALTH RN Plan of Treatment Not on file Insurance MEDICARE [facility] MEDICARE MEDICARE [facility] Care Teams Band Straightener Relationship Specialty Start Date End Date Regi Sosa MD [address] [place] [address] PCP - General Internal Medicine 08/01/24
--- OUTSIDE RECORDS SUMMARY | 2024-11-07 13:35 | XMS_ITS | Encounter Summary ---
Author Organization [facility] Address [address] [place] [address] Phone Care Team Providers Care Machinist Supervisor Outside Name Role Phone Regi Sosa MD Primary Care Provider [phone] Encounter Details Date Type Department Care Team (Late st Contact Info) Description 08/06/2024 Telephone [facility] [address] [facility] [address] [place] [address] [place] [address] Licha Ambrosio Social History Tobacco Use Types Packs/Day Years Used Date Smoking Tobacco: Never Smokeless Tobacco: Never Sex and Gender Information Value Date Recorded Sex Assigned at Not on file Legal Sex Male 10:35 PM MARINE TECHNICIAN Gender Identity Not on file Sexual Orientation Not on file documented as of this encounter Plan of Treatment Not on file documented as of this encounter Visit Diagnoses Not on filedocumented in this encounter Care Teams Machinist Supervisor Outside Relationship Specialty Start Date End Date Regi Sosa MD [address] [place] [address] PCP - General Internal Medicine 08/01/24 documented as of this encounter
--- OUTSIDE RECORDS SUMMARY | 2024-11-07 13:35 | XMS_ITS | Clinical Summary ---
Author Organization 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 Encounters Date Type Department Care Team Description 10/11/2024 Telephone [facility] [place] [address] [place] [address] Ned Silva 10/01/2024 1:45 PM RULING MACHINE SET UP OPERATOR Office Visit [facility] [address] [place] [address] Jessie Engle NP Memory loss (Primary Dx) 09/24/2024 Telephone [facility] [address] [facility] [address] 6th [place] [address] [place] [address] AngelicanoaAriana chunNed 08/24/2024 Telephone [facility] [address] [place] [address] Sara Burt, RMA from Last 3 Months Surgical History Surgery Date Site/Laterality Comments [place] CORONARY ARTERY BYPASS 1 CORONARY VENOUS GRAFT CABG - (Added by CURT Conv) EYE SURGERY BLEPHAROPTOSIS REPAIR Medical History Medical History Date Comments Personal history of other di seases of the circulatory system History of hypertension - (A dded by CURT Conv) Cataract Hypertension Family History Medical History Relation Name Comments Heart disease Brother Dementia Father Heart disease Mother Relation Name Status Comments Brother Father Mother Social History Tobacco Use Types Packs/Day Years Used Date Smoking Tobacco: Never Smokeless Tobacco: Never Tobacco Cessation:Counseling Given: No Sex and Gender Information Value Date Recorded Sex Assigned at Not on file Legal Sex Male 10:35 PM RULING MACHINE SET UP OPERATOR Gender Identity Not on file Sexual Orientation Not on file Obstetrics History Last Filed Vital Signs Vital Sign Reading Time Taken Comments Blood Pressure 134/60 10/01/2024 1:53 PM RULING MACHINE SET UP OPERATOR Pulse 62 10/01/2024 1:53 PM RULING MACHINE SET UP OPERATOR Temperature 36.2 C (97.2 F) 10/01/2024 1:53 PM RULING MACHINE SET UP OPERATOR Respiratory Rate - - Oxygen Saturation - - Inhaled Oxygen Concentration - - Weight 65.8 kg (145 lb) 10/01/2024 1:53 PM RULING MACHINE SET UP OPERATOR Height 167.6 cm (5' 5.98 ) 10/01/2024 1:53 PM CS T Body Mass Index 23.41 10/01/2024 1:53 PM RULING MACHINE SET UP OPERATOR Plan of Treatment Health Maintenance Due Date Last Done Comments Depression Screening 1950 Fall Risk Assessment 1950 Hepatitis C Screening 1950 DTaP/Tdap/Td Vaccine (1 - Tdap) 1959 Hepatitis B Screening 1966 Well Visit 65+ 2013 Pneumococcal vaccine 65+ (2 of 2 - PPSV23) 11/23/2015 11/22/2014 Zoster Vaccine (2 of 3) 08/09/2018 06/14/2018 Covid-19 Vaccine (3 - 2023-2 5 season) 2024 11/08/2020, 10/10/2020 Influenza Vaccine Completed 06/21/2024, , 06/03/2023, Additional history exists Insurance MEDICARE [facility] FEDERAL MEDICARE MEDICARE [facility] Care Teams Die Finisher Relationship Specialty Start Date End Date Regi Sosa MD [address] [place] [address] PCP - General Internal Medicine 08/01/24
--- OUTSIDE RECORDS SUMMARY | 2024-11-07 13:35 | XMS_ITS | Clinical Summary ---
Author Organization [facility] field Address [address] [place] [address] Phone Care Team Providers Care Industrial Welder Name Role Phone Erwin Araujo MD Primary Care Provider [phone] Allergies No known active allergies Medications niacin [...] by mouth one time only. Active Fish Oil-[place]-3 Fatty Acids 300-500 mg Capsule Take by [...] (1 - Tdap) 1967 PNEUMOCOCCAL VACCINE 50+ YEA RS (1 of 1 - PCV) [...] * (ABNORMAL) ENDOSCOPY, COLON, SCREENING (07/14/2015) us rEwin Hartley MD GI PROCEDURE ORDERABLES Edited R esult - [facility] from Last 3 Months or Most Recently Relevant to Health Maintenance Insurance Care Teams Industrial Welder Relationship Specialty Start Date End Date Erwin Araujo MD [address] [place] [address] PCP - General 09/02/15
--- OUTSIDE RECORDS SUMMARY | 2024-11-07 13:35 | XMS_ITS | Referral Summary ---
Author Organization [facility] Address [address] [place] [address] Care Team Providers Care Oceanographic Meteorologist Name Role Phone Erwin Araujo MD Primary Care Provider [phone] Joann Escobar Unavailable Manuel Kruger MD Unavailable [phone] Source Comments [facility],non-owned Affiliates and Associated Physician Practices is amultiple site organization consisting of ambulatory clinics and hospital sitesin [place], [place], [place] and [place]. This disclosure is being madepursuant to the Care Everywhere program and may not contain all information available regarding this patient. Last updated 18.[facility] Allergies No known active allergies Medications * [...] Take by mouth 2 times daily Active [place]-3 Fatty Acids (Fish Oil) 600 MG 700 [...] of Treatment Not on file Care Teams Oceanographic Meteorologist Relationship Specialty Start Date End Date Erwin Araujo MD [address] [place] [address] PCP - General Infectious Disease 09/02/22 Joann Escobar [address] [place] [address] 09/02/22 Manuel Kruger MD [address] [place] [address] Cardiology 09/02/22
--- OUTSIDE RECORDS SUMMARY | 2024-11-07 13:35 | XMS_ITS | Clinical Summary ---
Author Organization [facility] Address [address] [place] [address] Care Team Providers Care Fabrication And Layout Craftsman Name Role Phone Regi Sosa MD Primary Care Provider [phone] Allergies Active Allergy Reactions Criticality Noted Date [...] DIRECTED BY DOCTOR, Route to Pharmacy Electronically, [id number], [id number], Instructions Replace Required Details, 167.1, cm, 11/03/23 12:44:00 SUPERVISOR ORDER TAKERS, Height, 65.4, kg, 11/03/23 12:44:00 SUPERVISOR ORDER TAKERS, Weight 01/04/20 Active [place]-3 Fatty Acids (RA FISH OIL) 1000 MG Cap Take by mouth. Activ e terbinafine (LAMISIL) 250 MG tablet Take 1 tablet (250 mg total) by mouth daily. 05/09/20 24 Active Menaquinone-7 (VITAMIN K2 OR) Take 90 mcg by mouth. Active Magnesium 200 MG Tab Active evolocumab (REPATHA) 140 MG/ML injection (SYRINGE)Indications :Mixed hyperlipidemia,Angin a concurrent with and due to arteriosclerosis of CABG Inject 1 mL (140 mg total) into the skin every 14 (fourteen) days. 2 mL 2 07/10/20 Active Additional Information Patient not taking.Reported on 08/03/2024 metoprolol tartrate (LOPRESSOR) 25 MG tabletIndications:Co ronary artery disease involving still[place]am[place] coronary artery with angina pectoris, unspecified whether still[place]amish or transplanted heart,Primary hypertension Take 0.5 tablets (12.5 mg total) by mouth 2 (two) times daily. 180 tablet 1 08/03/20 24 Active losartan (COZAAR) 25 MG tabletIndications:Co ronary artery disease involving still[place] coronary artery with angina pectoris, unspecified whether still[place]ish or transplanted heart,Primary hypertension Take 1 tablet (25 mg total) by mouth daily. 90 tablet 1 08/03/20 24 Active Active Problems Problem Noted Date Diagnosed Date Arteriosclerosis of coronary artery 06/28/2024 Asynchronous valve closure syndrome 06/28/2024 CAD in stillaguamish artery 05/15/2024 Hypertension 05/15/2024 Mixed hyperlipidemia 05/15/2024 S/P CABG x 3 05/15/2024 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/2022 Resolved Problems Problem Noted Date Diagnosed Date Resolved Date Statin intolerance 05/15/2024 Encounters Date Type Department Care Team Description 10/30/2024 Telephone [place] [address] [place] [address] Regi Sosa MD Follow Up Call 10/30/2024 Telephone [place] [address] [place] [address] Regi Sosa MD Results 10/25/2024 Telephone [place] [address] [place] [address] Regi Sosa MD Follow Up Call 10/02/2024 Scan HEALTH INFO SRVCS Scanned, Doc [facility] Sleep Study (SCAN) 10/02/2024 Telephone [place] [address] [address] [place] [address] Regi Sosa MD Medication Information 09/17/2024 Telephone [facility] [place] [address] [place] [address] Regi Sosa MD Results 09/11/2024 Telephone [place] [address] [place] [address] [place] [address] Regi Sosa MD Question 09/06/2024 Telephone [place] [address] [place] [address] [place] [address] Regi Sosa MD Referral 09/04/2024 Telephone [place] [address] [place] [address] [place] [address] Regi Sosa MD Referral 08/11/2024 Scan HEALTH INFO SRVCS Scanned, Doc [facility] 08/10/2024 3:00 PM SUPERVISOR ORDER TAKERS Allied Health/Nurse Visit [place] [address] [place] [address] [address] [address] [place] [address] Regi Sosa MD Allied Health Visit (Pt is here for a BP check) 08/10/2024 Travel from Last 3 Months Immunizations Name Administration Dates Next Due Abrysvo Respiratory Syncytia l Virus (RSV) 0.5 mL, PF 07/26/2024 Influenza (Generic) 06/03/2023,,04/29/2021,2019,05/10/2018,06/06/2017,06/09/2016 Influenza Adult (Generic) 06/21/2024,05/16/2024 MODERNA COVID-19 BIVALENT (1 2+), MRNA, LNP-S, PF 12/21/2021 MODERNA COVID-19 BIVALENT (6 m-5y), MRNA, LNP-S, PF 12/21/2021 Pneumococcal (Prevnar 13) 11/22/2014 Zoster (Zostavax) [address] Unt/0.65Ml 06/14/2018 Social History Tobacco Use Types [...] Sign Reading Time Taken Comments Blood Pressure 134/70 10/30/2024 12:36 PM SUPERVISOR ORDER TAKERS Pulse 60 08/03/2024 10:50 AM SUPERVISOR ORDER TAKERS Temperature 36.2 C (97.2 F) 08/03/2024 10:50 AM SUPERVISOR ORDER TAKERS Respiratory Rate 18 08/03/2024 10:50 AM SUPERVISOR ORDER TAKERS Oxygen Saturation 100% 08/03/2024 10:50 AM SUPERVISOR ORDER TAKERS Inhaled Oxygen Concentration - - Weight 64.9 kg (143 lb) 08/03/2024 10:50 AM SUPERVISOR ORDER TAKERS Height 167.6 cm (5' 6 ) 08/03/2024 10:50 AM SUPERVISOR ORDER TAKERS Body Mass Index 23.08 08/03/2024 10:50 AM SUPERVISOR ORDER TAKERS Plan of Treatment Upcoming Encounters Date Type Department Care Team (Late st Contact Info) Description 01/23/2025 1:00 PM CDT Office Visit [facility] - [place] [address] [address] [place] [address] [place] [address] [place] [address] Health Maintenance Due Date Last Done Comments ASCVD Statin 1950 DTaP, Tdap and Td Vaccines (1 - Tdap) 1967 Annual Medicare Wellness Visit 2013 Pneumococcal Vaccine: 65+ Years (2 of 2 - PPSV23 or PCV20) 01/17/2015 11/22/2014 Zoster Vaccines (2 of 3) 08/09/2018 06/14/2018 COVID-19 Vaccine ( - season) 2024 12/21/2021, 12/21/2021, 07/02/2021, Additional history exists PHQ-2 (Physician [place]) 08/29/2024 06/28/2024 Influenza Adult Completed 06/21/2024, 04/29, [...] Procedure Name Priority Date/Time Associated Diagnosis Comments SLEEP STUDY GENERIC (SCAN ORDER) 10/02/2024 SLEEP STUDY GENERIC (SCAN ORDER) 10/02/2024 EVENT RECORDER (ECG) UP TO 30 DAYS COMPLETE Routine 09/10/2024 4:03 PM SUPERVISOR ORDER TAKERS Atrial fibrillation, unspecified type ([facility]) HEPATITIS C ANTIBODY Routine 06/28/2024 10:40 AM CDT Need for hepatitis C screening test Drug therapy from Last 3 Months or Most Recently Relevant to Health Maintenance Results * SLEEP STUDY GENERIC (SCAN ORDER) (10/02/2024) 10/02/2024 [facility] Scanned SCANNING Final Resu lt * SLEEP STUDY GENERIC (SCAN ORDER) (10/02/2024) 10/02/2024 [facility] Scanned SCANNING Final Resu lt * EVENT RECORDER (ECG) UP TO 30 DAYS COMPLETE (09/10/2024 4:03 PM SUPERVISOR ORDER TAKERS) Impressions [place] [employer] - 09/10/2024 4:03 PM SUPERVISOR ORDER TAKERS [facility] [place], [place] [address] MOBILE CARDIAC CENTRAL SERVICES TECH REPORT Patient Name: Virgil Bower : 1950 Mailing Clerk Date: 08/06/2024 End Date: 09/04/2023 Performed At: [place], [place] Interpreting Roof Bolting Coal Miner: Ken Ramirez MD PCP: REGI SOSA MD Ordering Provider: Regi Sosa MD INDICATION: atrial fibrillation DURATION OF MONITORIN days NUMBER OF TRANSMISSIONS: 19 (13 auto transmissions, 6 manual, 0 periodic) INTERPRETATION: A 30-day mobile cardiac laboratory monitor analyzed. Interpretable data was 19 days, 5 [...] There was no atrial fibrillation observed. Interpreting Roof Bolting Coal Miner: Dr. Ken Ramirez us Regi Sosa MD CV VASCULAR ORDERABLES Final Res ult [facility] * HEPATITIS C ANTIBODY (06/28/2024 10:40 AM CDT) HEPATITIS C AB NON-REACTI VE NON-REACT DARIUS 06/28/2024 6:58 PM CDT [facility] Comment: ANTIBODIES TO HCV NOT DETECTED. DOES NOT EXCLUDE THE POSSIBILITY OF EXPOSURE TO HCV. 06/28/2024 10:4 0 AM CDT Regi Sosa MD LABORATORY Final Result [facility] [address] [place] [address], [id number] from Last 3 Months or Most Recently Relevant to Health Maintenance Insurance MEDICARE [facility] Care Teams Fabrication And Layout Craftsman Relationship Specialty Start Date End Date Regi Sosa MD [address] [place] [address] PCP - General INTERNAL MEDICINE 05/16/24
--- OUTSIDE RECORDS SUMMARY | 2024-11-07 13:35 | XMS_ITS | Patient Health Summary ---
Author Organization [facility] Address [address] [place] [address] Care Team Providers Care Art Museum Docent Name Role Phone Erwin Araujo MD Primary Care Provider Joann Escobar Unavailable Manuel Kruger MD Unavailable Note from [facility],non-owned Affiliates and Associated Physician Practices is amultiple site organization consisting of ambulatory clinics and hospital sitesin [place], [place], [place] and [place]. This disclosure is being madepursuant to the Care Everywhere program and may not contain all information available regarding this patient. Last updated 18.[facility] Allergies No known active allergies Medications [...] Take by mouth 2 times daily * [place]-3 Fatty Acids (Fish Oil) 600 MG(Started 07/07/2021) [...] 22.6 04/15/2023 6:00 AM CDT Procedures * [place] REPAIR BROW PTOSIS(Performed 04/15/2023) Performed for Ptosis of both eyelids Care Teams Art Museum Docent Relationship Specialty Start Date End Date Erwin Araujo MD [address] [place], [place] [id number] PCP - General Infectious Disease 09/02/22 Joann Escobar [address] [place] [phone] 09/02/22 Manuel Kruger MD [address] [place] [address] Cardiology 09/02/22
== END 2024-11-07 11:57 | disposition home or self-care (01) ==
PROVIDERS: Visit Provider Internal Medicine
DX: M85.89 Other specified disorders of bone density and structure, multiple sites (principal)
CPT/HCPCS: 77080

== ENCOUNTER 2024-11-12 16:58 | Outpatient (CLI) | payer MEDICARE, BC, SELFPAY ==
[2024-11-12 17:26] LABS: Alanine Aminotransferase 27 U/L (6-50); Aspartate Amino Transferase 43 U/L (17-59)
--- OUTSIDE RECORDS SUMMARY | 2024-11-12 18:57 | XMS_ITS | Patient Health Summary ---
Author Organization [facility] Address [address] [place] [place] [address] Care Team Providers Care Insulation Inspector Name Role Phone Erwin Araujo MD Primary Care Provider [phone] Joann Escobar Unavailable Manuel Kruger MD Unavailable [phone] Note from [facility],non-owned Affiliates and Associated Physician Practices is amultiple site organization consisting of ambulatory clinics and hospital sitesin [place], [place], [place] and [place]. This disclosure is being madepursuant to the Care Everywhere program and may not contain all information available regarding this patient. Last updated 18.[facility] Allergies No known active allergies Medications [...] Take by mouth 2 times daily * [place]-3 Fatty Acids (Fish Oil) 600 MG(Started 07/07/2021) [...] 22.6 04/15/2023 6:00 AM CDT Procedures * [place] REPAIR BROW PTOSIS(Performed 04/15/2023) Performed for Ptosis of both eyelids Care Teams Insulation Inspector Relationship Specialty Start Date End Date Erwin Araujo MD [address] [place], [place] [id number] PCP - General Infectious Disease 09/02/22 Joann Escobar [address] [place] [phone] 09/02/22 Manuel Kruger MD [address] [place] [address] Cardiology 09/02/22
--- OUTSIDE RECORDS SUMMARY | 2024-11-12 18:57 | XMS_ITS | Referral Summary ---
Author Organization [facility] Address [address] [place] [address] Care Team Providers Care Cartographic Designer Name Role Phone Regi Sosa MD Primary Care Provider [phone] Encounters Date Type Department Care Team Description 10/11/2024 Telephone [facility] [facility] First Floor [address] [place] [address] Ned Silva 10/01/2024 1:45 PM HOME CARE MANAGER Office Visit [facility] [place] [id number] [facility] [address] Floor [address] [place] [address] Jessie Engle NP Memory loss (Primary Dx) 09/24/2024 Telephone [facility] [address] [facility] [address] [address] 6th [place] [address] [place] [address] Ned Silva 08/24/2024 Telephone [facility] [address] Floor [address] [place] [address] Sara Burt RMA from Last [...] on file Legal Sex Male 10:35 PM HOME CARE MANAGER Gender Identity Not on file Sexual Orientation Not on file Last Filed Vital Signs Vital Sign Reading Time Taken Comments Blood Pressure 134/60 10/01/2024 1:53 PM HOME CARE MANAGER Pulse 62 10/01/2024 1:53 PM HOME CARE MANAGER Temperature 36.2 C (97.2 F) 10/01/2024 1:53 PM HOME CARE MANAGER Respiratory Rate - - Oxygen Saturation - - Inhaled Oxygen Concentration - - Weight 65.8 kg (145 lb) 10/01/2024 1:53 PM HOME CARE MANAGER Height 167.6 cm (5' 5.98 ) 10/01/2024 1:53 PM CS T Body Mass Index 23.41 10/01/2024 1:53 PM HOME CARE MANAGER Plan of Treatment Not on file Insurance MEDICARE [facility] FED[facility] FED[facility]AL MEDICARE MEDICARE [facility] Care Teams Cartographic Designer Relationship Specialty Start Date End Date Regi Sosa MD [address] [place] [address] PCP - General Internal Medicine 08/01/24
--- OUTSIDE RECORDS SUMMARY | 2024-11-12 18:57 | XMS_ITS | Clinical Summary ---
Author Organization [facility] Address [address] [place] [address] Care Team Providers Care Performance Solutions Specialist Name Role Phone Regi Sosa MD Primary Care Provider [phone] Allergies Active Allergy Reactions Criticality Noted Date [...] DIRECTED BY DOCTOR, Route to Pharmacy Electronically, [id number], [id number], Instructions Replace Required Details, 167.1, cm, 11/03/23 12:44:00 TESTER WASTE DISPOSAL LEAKAGE, Height, 65.4, kg, 11/03/23 12:44:00 TESTER WASTE DISPOSAL LEAKAGE, Weight 01/04/20 Active [place]-3 Fatty Acids (RA FISH OIL) 1000 MG [...] 25 MG tabletIndications:Co ronary artery disease involving qagan tayagungin coronary artery with angina pectoris, unspecified whether qagan tayagungin or transplanted heart,Primary hypertension Take 0.5 tablets (12.5 mg total) by mouth 2 (two) times daily. 180 tablet 1 08/03/20 24 Active losartan (COZAAR) 25 MG tabletIndications:Co ronary artery disease involving qagan tayagungin coronary artery with angina pectoris, unspecified whether qagan tayagungin or transplanted heart,Primary hypertension Take 1 tablet (25 mg total) by mouth daily. 90 tablet 1 08/03/20 24 Active Active Problems Problem Noted Date Diagnosed Date Arteriosclerosis of coronary artery 06/28/2024 Asynchronous valve closure syndrome 06/28/2024 CAD in qagan tayagungin artery 05/15/2024 Hypertension 05/15/2024 Mixed hyperlipidemia 05/15/2024 S/P CABG x 3 05/15/2024 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/2022 Resolved Problems Problem Noted Date Diagnosed Date Resolved Date Statin intolerance 05/15/2024 Encounters Date Type Department Care Team Description 11/09/2024 [facility] [place] [address] [address] [place] [address] Regi Ssoa MD Referral 10/30/2024 [facility] [address] [place] [address] Regi Sosa MD Follow Up Call 10/30/2024 Telephone [facility] [address] [place] [address] Regi Sosa MD Results 10/25/2024 Telephone [facility] [place] [address] [facility] [address] [place] [address] Regi Sosa MD Follow Up Call 10/02/2024 Scan HEALTH INFO SRVCS Scanned, Doc [facility] Sleep Study (SCAN) 10/02/2024 Telephone [place] [address] [address] [facility] [address] [place] [address] Regi Sosa MD Medication Information 09/17/2024 Telephone [place] [address] [address] [facility] [address] [place] [address] Regi Sosa MD Results 09/11/[address] [facility] [address] [place] [address] Regi Sosa MD Question 09/06/2024 Telephone [place] [address] [address] [facility] [address] [place] [address] Regi Sosa MD Referral 09/04/2024 Telephone [place] [address] [address] [facility] [address] [place] [address] Regi oSsa MD Referral from Last 3 Months Immunizations Name Administration Dates Next Due Abrysvo Respiratory Syncytia l Virus (RSV) 0.5 mL, PF 07/26/2024 Influenza (Generic) 06/03/2023,,04/29/2021,2019,05/10/2018,06/06/2017,06/09/2016 Influenza Adult (Generic) 06/21/2024,05/16/2024 MODERNA COVID-19 BIVALENT (1 2+), MRNA, LNP-S, PF 12/21/2021 MODERNA COVID-19 BIVALENT (6 m-5y), MRNA, LNP-S, PF 12/21/2021 Pneumococcal (Prevnar 13) 11/22/2014 Zoster (Zostavax) [address]1340 Unt/0.65Ml 06/14/2018 Social History Tobacco Use Types [...] Comments Blood Pressure 134/70 10/30/2024 12:36 PM TESTER WASTE DISPOSAL LEAKAGE Pulse 60 08/03/2024 10:50 AM TESTER WASTE DISPOSAL LEAKAGE Temperature 36.2 C (97.2 F) 08/03/2024 10:50 AM TESTER WASTE DISPOSAL LEAKAGE Respiratory Rate 18 08/03/2024 10:50 AM TESTER WASTE DISPOSAL LEAKAGE Oxygen Saturation 100% 08/03/2024 10:50 AM TESTER WASTE DISPOSAL LEAKAGE Inhaled Oxygen Concentration - - Weight 64.9 kg (143 lb) 08/03/2024 10:50 AM TESTER WASTE DISPOSAL LEAKAGE Height 167.6 cm (5' 6 ) 08/03/2024 10:50 AM TESTER WASTE DISPOSAL LEAKAGE Body Mass Index 23.08 08/03/2024 10:50 AM TESTER WASTE DISPOSAL LEAKAGE Plan of Treatment Upcoming Encounters Date Type Department Care Team (Late st Contact Info) Description 01/23/2025 1:00 PM CDT Office Visit [facility] [place] [address] [address] [place] [address] Regi Sosa MD [address] [place] [address] Health Maintenance Due Date Last Done Comments ASCVD Statin 1950 DTaP, Tdap and Td Vaccines (1 - Tdap) 1969 Annual Medicare Wellness Visit 2013 Pneumococcal Vaccine: 65+ Years (2 of 2 - PPSV23 or PCV20) 01/17/2015 11/22/2014 Zoster Vaccines (2 of 3) 08/09/2018 06/14/2018 COVID-19 Vaccine (5 - 2023-25 season) 2024 12/21/2021, 12/21/2021, 07/02/2021, Additional history exists PHQ-2 (Physician [place]) 08/29/2024 06/28/2024 Influenza Adult Completed 06/21/2024, 04/29, [...] 30 DAYS COMPLETE Routine 09/10/2024 4:03 PM TESTER WASTE DISPOSAL LEAKAGE Atrial fibrillation, unspecified type ([facility]) HEPATITIS C ANTIBODY Routine 06/28/2024 10:40 AM CDT Need for hepatitis C screening test Drug therapy from Last 3 Months or Most Recently Relevant to Health Maintenance Results * SLEEP STUDY GENERIC (SCAN ORDER) (10/02/2024) 10/02/2024 us [facility] Scanned SCANNING Final Resu lt * SLEEP STUDY GENERIC (SCAN ORDER) (10/02/2024) 10/02/2024 us [facility] Scanned SCANNING Final Resu lt * EVENT RECORDER (ECG) UP TO 30 DAYS COMPLETE (09/10/2024 4:03 PM TESTER WASTE DISPOSAL LEAKAGE) Penny [facility] - 09/10/2024 4:03 PM TESTER WASTE DISPOSAL LEAK[place] [address] MOBILE CARDIAC SOIL SCIENCE TECHNICAL OFFICER REPORT Patient Name: Virgil Bower : 1950 Insurance Claims Representative Date: 08/06/2024 End Date: 09/04/2023 Performed At: [place], [place] Interpreting Cylinder Press Operator: Ken Ramirez MD PCP: REGI SOSA MD Ordering Provider: Regi Sosa MD INDICATION: atrial fibrillation DURATION OF MONITORIN days NUMBER OF TRANSMISSIONS: 19 (13 auto transmissions, 6 manual, 0 periodic) INTERPRETATION: A 30-day mobile cardiac monitoring coordinator analyzed. Interpretable data was 19 days, 5 [...] There was no atrial fibrillation observed. Interpreting Cylinder Press Operator: Dr. Ken Ramirez us Regi Sosa MD CV VASCULAR ORDERABLES Final Res ult [facility] * HEPATITIS C ANTIBODY (06/28/2024 10:40 AM CDT) HEPATITIS C AB NON-REACTI VE NON-REACT DARIUS 06/28/2024 6:58 PM CDT [facility] Comment: ANTIBODIES TO HCV NOT DETECTED. DOES NOT EXCLUDE THE POSSIBILITY OF EXPOSURE TO HCV. 06/28/2024 10:4 0 AM CDT Regi Sosa MD LABORATORY Final Result [facility] [address] [place] [address], [id number] from Last 3 Months or Most Recently Relevant to Health Maintenance Insurance MEDICARE [facility] Care Teams Performance Solutions Specialist Relationship Specialty Start Date End Date Regi Sosa MD [address] [facility] [address] [place] [address] PCP - General INTERNAL MEDICINE 05/16/24
--- OUTSIDE RECORDS SUMMARY | 2024-11-12 18:57 | XMS_ITS | Clinical Summary ---
Author Organization [facility] Address [address] [place] [address] Care Team Providers Care Tree Fruit And Nut Farming Supervisor Name Role Phone Erwin Araujo MD Primary Care Provider [phone] Joann Escobar Unavailable Manuel Kruger MD Unavailable [phone] Source Comments [facility],non-owned Affiliates and Associated Physician Practices is amultiple site organization consisting of ambulatory clinics and hospital sitesin [place], [place], [place] and [place]. This disclosure is being madepursuant to the Care Everywhere program and may not contain all information available regarding this patient. Last updated 18.[facility] Allergies No known active allergies Medications * [...] Take by mouth 2 times daily Active [place]-3 Fatty Acids (Fish Oil) 600 MG 700 [...] age to complete this topic Care Teams Tree Fruit And Nut Farming Supervisor Relationship Specialty Start Date End Date Erwin Araujo MD [address] [facility] [address] [place] [address] PCP - General Infectious Disease 09/02/22 Joann Escobar [address] [place] [phone] 09/02/22 Manuel Kruger MD [address] [place] [address] Cardiology 09/02/22
--- OUTSIDE RECORDS SUMMARY | 2024-11-12 18:57 | XMS_ITS | Clinical Summary ---
Author Organization [facility] Address [address] [place] [address] Care Team Providers Care Software Developer Name Role Phone Regi Sosa MD Primary Care Provider [phone] Allergies Active Allergy Reactions Criticality Noted Date [...] Type Department Care Team Description 10/11/2024 Telephone [facility] [place] [address] [place] [address] Ned Silva 10/01/2024 1:45 PM LETTER STAMPING MACHINE OPERATOR Office Visit [facility] [address] [place] [address] Jessie Engle NP Memory loss (Primary Dx) 09/24/2024 Telephone [facility] [address] [facility] 6th [place] [address] [place] [address] AngelicanoaAriana chunNed 08/24/2024 Telephone [facility] [address] [place] [address] Sara Burt, RMA from Last 3 Months Surgical History Surgery Date Site/Laterality Comments [place] CORONARY ARTERY BYPASS 1 CORONARY VENOUS GRAFT [...] on file Legal Sex Male 10:35 PM LETTER STAMPING MACHINE OPERATOR Gender Identity Not on file Sexual Orientation Not on file Obstetrics History Last Filed Vital Signs Vital Sign Reading Time Taken Comments Blood Pressure 134/60 10/01/2024 1:53 PM LETTER STAMPING MACHINE OPERATOR Pulse 62 10/01/2024 1:53 PM LETTER STAMPING MACHINE OPERATOR Temperature 36.2 C (97.2 F) 10/01/2024 1:53 PM LETTER STAMPING MACHINE OPERATOR Respiratory Rate - - Oxygen Saturation - - Inhaled Oxygen Concentration - - Weight 65.8 kg (145 lb) 10/01/2024 1:53 PM LETTER STAMPING MACHINE OPERATOR Height 167.6 cm (5' 5.98 ) 10/01/2024 1:53 PM CS T Body Mass Index 23.41 10/01/2024 1:53 PM LETTER STAMPING MACHINE OPERATOR Plan of Treatment Health Maintenance Due [...] , 06/03/2023, Additional history exists Insurance MEDICARE [facility] FEDERAL [facility] FEDERAL MEDICARE MEDICARE [facility] Care Teams Software Developer Relationship Specialty Start Date End Date Regi Sosa MD [address] [place] [address] PCP - General Internal Medicine 08/01/24
--- OUTSIDE RECORDS SUMMARY | 2024-11-12 18:57 | XMS_ITS | Encounter Summary ---
Author Organization [facility] Address [address] [place] [address] Phone Care Team Providers Care Veneer Drier Name Role Phone Regi Sosa MD Primary Care Provider [phone] Encounter Details Date Type Department Care Team (Late st Contact Info) Description 08/06/2024 Telephone [facility] [place] [address] [facility] 6[address] [place] [address] [place] [address] Licha Ambrosio Social History Tobacco Use Types Packs/Day Years Used Date Smoking Tobacco: Never Smokeless Tobacco: Never Sex and Gender Information Value Date Recorded Sex Assigned at Not on file 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
--- OUTSIDE RECORDS SUMMARY | 2024-11-12 18:57 | XMS_ITS | Referral Summary ---
Author Organization [facility] Address [address] [place] [address] Care Team Providers Care Geospatial Program Management Officer Name Role Phone Erwin Araujo MD Primary Care Provider [phone] Joann Escobar Unavailable Manuel Kruger MD Unavailable [phone] Source Comments [facility],non-owned Affiliates and Associated Physician Practices is amultiple site organization consisting of ambulatory clinics and hospital sitesin [place], [place], [place] and [place]. This disclosure is being madepursuant to the Care Everywhere program and may not contain all information available regarding this patient. Last updated 18.[facility] Allergies No known active allergies Medications [...] Take by mouth 2 times daily Active [place]-3 Fatty Acids (Fish Oil) 600 MG 700 [...] of Treatment Not on file Care Teams Geospatial Program Management Officer Relationship Specialty Start Date End Date Erwin Araujo MD [address] [place] [address] PCP - General Infectious Disease 09/02/22 Joann Escobar [address] [place] [address] 09/02/22 Manuel Kruger MD [address] [place] [address] Cardiology 09/02/22
--- OUTSIDE RECORDS SUMMARY | 2024-11-12 18:57 | XMS_ITS | Clinical Summary ---
Author Organization [facility] field Address [address] [place] [address] Phone Care Team Providers Care Associate Principal Name Role Phone Erwin Araujo MD Primary Care Provider [phone] Allergies No known active allergies Medications niacin [...] by mouth one time only. Active Fish Oil-[place]-3 Fatty Acids 300-500 mg Capsule Take by [...] Relevant to Health Maintenance Insurance Care Teams Associate Principal Relationship Specialty Start Date End Date Erwin Araujo MD [address] [place] [address] PCP - General 09/02/15
== END 2024-11-12 16:59 | disposition home or self-care (01) ==
PROVIDERS: Visit Provider Podiatrist Foot & Ankle Surgery
DX: B35.1 Tinea unguium (principal)
CPT/HCPCS: 36415; 84450; 84460

== ENCOUNTER 2024-11-23 14:41 | Outpatient (CLI) | payer MEDICARE, BC, SELFPAY ==
--- OUTSIDE RECORDS SUMMARY | 2024-11-23 14:47 | XMS_ITS | Clinical Summary ---
Author Organization [facility] field Address [address] [place] [address] Phone Care Team Providers Care Warp Drawer Name Role Phone Erwin Araujo MD Primary Care Provider [phone] Allergies No known active allergies Medications niacin [...] by mouth one time only. Active Fish Oil-[place]-3 Fatty Acids 300-500 mg Capsule Take by [...] Relevant to Health Maintenance Insurance Care Teams Warp Drawer Relationship Specialty Start Date End Date Erwin Araujo MD [address] [place] [address] PCP - General 09/02/15
--- OUTSIDE RECORDS SUMMARY | 2024-11-23 14:47 | XMS_ITS | Clinical Summary ---
Author Organization [facility] Address [address] [place] [address] Care Team Providers Care Wallpaper Inspector Name Role Phone Erwin Araujo MD Primary Care Provider [phone] Joann Escobar Unavailable Manuel Kruger MD Unavailable Source Comments [facility],non-owned Affiliates and Associated Physician Practices is amultiple site organization consisting of ambulatory clinics and hospital sitesin [place], [place], [place] and [place]. This disclosure is being madepursuant to the Care Everywhere program and may not contain all information available regarding this patient. Last updated 18.[facility] Allergies No known active allergies Medications * [...] Take by mouth 2 times daily Active [place]-3 Fatty Acids (Fish Oil) 600 MG 700 [...] age to complete this topic Care Teams Wallpaper Inspector Relationship Specialty Start Date End Date Erwin Araujo MD [address] [facility] [address] [place] [address] PCP - General Infectious Disease 09/02/22 Joann Escobar [address] [place] [phone] 09/02/22 Manuel Kruger MD [address] [place] [address] Cardiology 09/02/22
--- OUTSIDE RECORDS SUMMARY | 2024-11-23 14:47 | XMS_ITS | Encounter Summary ---
Author Organization [facility] Address [address] [place] [address] Phone Care Team Providers Care Trimming Department Blocker Name Role Phone Regi Sosa MD Primary Care Provider [phone] Encounter Details Date Type Department Care Team (Late st Contact Info) Description 08/06/2024 Telephone [facility] [place] [address] 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
--- OUTSIDE RECORDS SUMMARY | 2024-11-23 14:47 | XMS_ITS | Clinical Summary ---
Author Organization [facility] Address [address] [place] [address] Care Team Providers Care Advertising Analyst Name Role Phone Regi Sosa MD Primary Care Provider [phone] Allergies Active Allergy Reactions Criticality Noted Date [...] Type Department Care Team Description 10/11/2024 Telephone [facility] Diagnostic [place] [address] [place] [address] Ned Silva 10/01/2024 1:45 PM SENIOR ADMINISTRATIVE ASSOCIATE Office Visit [facility] [address] [place] [address] Jessie Engle NP Memory loss (Primary Dx) 09/24/2024 Telephone [facility] [address] 6th [place] [address] [place] [address] Ned Silva from Last 3 Months Surgical History Surgery Date Site/Laterality Comments [place] CORONARY ARTERY BYPASS 1 CORONARY VENOUS GRAFT CABG - (Added by TW Conv) EYE SURGERY BLEPHAROPTOSIS REPAIR Medical History [...] on file Legal Sex Male 10:35 PM SENIOR ADMINISTRATIVE ASSOCIATE Gender Identity Not on file Sexual Orientation Not on file Obstetrics History Last Filed Vital Signs Vital Sign Reading Time Taken Comments Blood Pressure 134/60 10/01/2024 1:53 PM SENIOR ADMINISTRATIVE ASSOCIATE Pulse 62 10/01/2024 1:53 PM SENIOR ADMINISTRATIVE ASSOCIATE Temperature 36.2 C (97.2 F) 10/01/2024 1:53 PM SENIOR ADMINISTRATIVE ASSOCIATE Respiratory Rate - - Oxygen Saturation - - Inhaled Oxygen Concentration - - Weight 65.8 kg (145 lb) 10/01/2024 1:53 PM SENIOR ADMINISTRATIVE ASSOCIATE Height 167.6 cm (5' 5.98 ) 10/01/2024 1:53 PM CS T Body Mass Index 23.41 10/01/2024 1:53 PM SENIOR ADMINISTRATIVE ASSOCIATE Plan of Treatment Health Maintenance Due Date [...] , 06/03/2023, Additional history exists Insurance MEDICARE [facility] FEDERAL [facility] MEDICARE MEDICARE [facility] Member Subscriber Plan / Payer (Ef fective 2022-) Name:Cheli Virgil Caal Relation to Subscriber:Self Name:Virgil Bower JrLaureen Payer ID:[id number] (NAIC) Group ID:[id number] Type:[employer] Address: [address] [place] [id number] Care Teams Advertising Analyst Relationship Specialty Start Date End Date Regi Sosa MD [address] [place] [address] PCP - General Internal Medicine 08/01/24
--- OUTSIDE RECORDS SUMMARY | 2024-11-23 14:47 | XMS_ITS | Clinical Summary ---
Author Organization [facility] Address [address] [place] [address] Care Team Providers Care Sales Office Assistant Name Role Phone Regi Wilson MD Primary Care Provider [phone] Allergies Active Allergy Reactions Criticality Noted Date [...] DIRECTED BY DOCTOR, Route to Pharmacy Electronically, [id number], [id number], Instructions Replace Required Details, 167.1, cm, 11/03/23 12:44:00 MARINE ELECTRICIAN HELPER, Height, 65.4, kg, 11/03/23 12:44:00 MARINE ELECTRICIAN HELPER, Weight 01/04/20 24 Active Niles-3 Fatty Acids (RA FISH OIL) 1000 MG Cap Take by mouth. Activ e terbinafine (LAMISIL) 250 MG tablet Take 1 tablet (250 mg total) by mouth daily. 05/09/20 24 Active Menaquinone-7 (VITAMIN K2 OR) Take 90 mcg by mouth. 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 90 tablet 1 08/03/20 24 Active CPAP DEVICE, DME,Indications:Oth er insomnia 1 Device by Does not apply route nightly at bedtime. Send to [facility]. 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 180 tablet 1 11/24/19 25 Active evolocumab (REPATHA) 140 MG/ML injection (SYRINGE)Indication s:Mixed hyperlipidemia,Dee Dee na concurrent with and due to arteriosclerosis of CABG Inject 1 mL (140 mg total) into the skin every 14 (fourteen) days. 2 mL 2 11/24/19 25 Active evolocumab (REPATHA) 140 MG/ML injection (SYRINGE)Indication s:Mixed hyperlipidemia,Dee Dee na concurrent with and due to arteriosclerosis of CABG Inject 1 mL (140 mg total) into the skin every 14 (fourteen) days. 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 [facility] [address] [place] [address] Regi Wilson MD Lab Order 11/23/2024 Travel 11/19/2024 [facility] [place] [address] [facility] [address] [place] [address] Regi Wilson MD Orders; Returned Call 11/16/2024 [facility] [place] [address] [address] [facility] [address] [place] [address] Regi Wilson MD Orders 11/15/2024 [place] [address] [address] [facility] [address] [place] [address] Regi Wilson MD Referral 11/13/2024 Telephone [place] [address] [address] [facility] [address] [place] [address] Regi Wilson MD Follow Up Call 11/09/2024 Telephone [place] [address] [address] [facility] [address] [place] [address] Regi Wilson MD Referral 11/07/2024 Scan [id number] SRVCS Scanned, Doc Med Group 10/30/2024 [facility] [place] [address] [address] [facility] [address] [place] [address] Regi Wilson MD Follow Up Call 10/30/2024 [facility] [place] [address] [address] [facility] [address] [place] [address] Regi Wilson MD Results 10/25/2024 [facility] [place] [address] [address] [facility] [address] [place] [address] Regi Wilson MD Follow Up Call 10/02/2024 Scan BDA INFO SRVCS Scanned, Doc [facility] Sleep Study (SCAN) 10/02/2024 Telephone [place] [address] [address] [facility] [address] [place] [address] Regi Wilson MD Medication Information 09/17/2024 Telephone [place] [address] [address] [facility] [address] [place] [address] Regi Wilson MD Results 09/11/[address] [facility] [address] [place] [address] Regi Wilson MD Question 09/06/2024 Telephone [place] [address] [address] [facility] [address] [place] [address] Regi Wilson MD Referral 09/04/2024 Telephone [place] [address] [address] [facility] [address] [place] [address] Regi Wilson MD Referral from Last 3 Months Immunizations Name Administration Dates Next Due Abrysvo Respiratory Syncytia l Virus (RSV) 0.5 mL, PF 07/26/2024 Influenza (Generic) 06/03/2023,,04/29/2021,2019,05/10/2018,06/06/2017,06/09/2016 Influenza Adult (Generic) 06/21/2024,05/16/2024 MODERNA COVID-19 BIVALENT (1 2+), MRNA, LNP-S, PF 12/21/2021 MODERNA COVID-19 BIVALENT (6 m-5y), MRNA, LNP-S, PF 12/21/2021 Pneumococcal (Prevnar 13) 11/22/2014 Zoster (Zostavax) 61334 Unt/0.65Ml 06/14/2018 Social History Tobacco Use Types Packs/Day Years Used Date Smoking Tobacco: Never Smokeless Tobacco: Never Tobacco Cessation:Counseling Given: No Comments:Counseled by Dr. Wilson. AUDIT-C Answer Date Recorded Q1: How often do you have a drink containing alcohol? Never 06/28/2024 Q2: How many drinks containi ng alcohol do you have on a typical day when you are drinking? Patient does not drink Q3: How often do you have si x or more drinks on one occasion? Never 06/28/2024 PHQ-2 Answer Date Recorded Patient Health Questionnaire-2 Score 0 11/23/2024 Sex and Gender Information Value Date Recorded Sex Assigned at Not on file Legal Sex Male 7:44 PM CDT Gender Identity Not on file Sexual Orientation Not on file Last Filed Vital Signs Vital Sign Reading Time Taken Comments Blood Pressure 119/63 11/23/2024 11:03 AM CDT Pulse 57 11/23/2024 11:03 AM CDT Temperature 36.9 C (98.4 F) 11/23/2024 11:03 AM CDT Respiratory Rate 18 08/03/2024 10:5 0 AM MARINE ELECTRICIAN HELPER Oxygen Saturation 98% 11/23/2024 11: 03 AM CDT Inhaled Oxygen Concentration - - Weight 68.4 kg (150 lb 12.8 oz) 025 11:03 AM CDT Height 167.6 cm (5' 6 ) 11/23/2024 11:0 3 AM CDT Body Mass Index 24.34 11/23/2024 11:03 AM CDT Plan of Treatment Upcoming Encounters Date Type Department Care Team (Late st Contact Info) Description 01/23/2025 1:00 PM CDT Office Visit [facility] Multispecialty Care - [place] [address] [address] [place] [address] Regi Wilson MD [address] [place] [address] Health Maintenance Due Date Last Done Comments ASCVD Statin 1950 DTaP, Tdap and Td Vaccines (1 - Tdap) 1969 Annual Medicare Wellness Visit 2013 Pneumococcal Vaccine: 65+ Years (2 of 2 - PPSV23 or PCV20) 01/17/2015 11/22/2014 Zoster Vaccines (2 of 3) 08/09/2018 06/14/2018 COVID-19 Vaccine ( season) 2024 12/21/2021, 12/21/2021, 07/02/2021, Additional history exists PHQ-2 (Physician [place]) 08/29/2024 06/28/2024 Hepatitis C Completed 06/28/2024 RSV Immunization or [...] Procedure Name Priority Date/Time Associated Diagnosis Comments BONE DENSITY GENERIC (SCAN ORDER) 11/07/2024 SLEEP STUDY GENERIC (SCAN ORDER) 10/02/2024 SLEEP STUDY GENERIC (SCAN ORDER) 10/02/2024 POLYSOMNOGRAPHY 4 OR MORE PARAMETERS Routine 10/02/2024 12:00 AM MARINE ELECTRICIAN HELPER Insomnia with sleep apnea EVENT RECORDER (ECG) UP TO 30 DAYS COMPLETE Routine 09/10/2024 4:03 PM MARINE ELECTRICIAN HELPER Atrial fibrillation, unspecified type ([facility]) HEPATITIS C ANTIBODY Routine 06/28/2024 10:40 AM CDT Need for hepatitis C screening test Drug therapy from Last 3 Months or Most Recently Relevant to Health Maintenance Results * BONE DENSITY GENERIC (SCAN ORDER) (11/07/2024) Anatomical Region Laterality Modality Other 11/07/2024 us [facility] Scanned SCANNING Final Resu lt * Diagnostic PSG (00249, 37791) (10/02/2024 12:00 AM MARINE ELECTRICIAN HELPER) 10/02/2024 us Regi Wilson MD SLEEP CENTER ORDERABLES Final Re sult [facility] ONBASE * SLEEP STUDY GENERIC (SCAN ORDER) (10/02/2024) 10/02/2024 [facility] Scanned SCANNING Final Resu lt * SLEEP STUDY GENERIC (SCAN ORDER) (10/02/2024) 10/02/2024 [facility] Scanned SCANNING Final Resu lt * EVENT RECORDER (ECG) UP TO 30 DAYS COMPLETE (09/10/2024 4:03 PM MARINE ELECTRICIAN HELPER) Impressions [facility] - 09/10/2024 4:03 PM MARINE ELECTRICIAN HELPER [place], [place] [address] MOBILE CARDIAC CROP DUSTER REPORT Patient Name: Virgil Bower : 1950 [address] Date: 08/06/2024 End Date: 09/04/2023 Performed At: [place], [place] Interpreting Medical Oncology Physician: Ken Ramirez MD PCP: REGI WILSON MD Ordering Provider: Regi Wilson MD INDICATION: atrial fibrillation DURATION OF MONITORIN days NUMBER OF TRANSMISSIONS: 19 (13 auto transmissions, 6 manual, 0 periodic) INTERPRETATION: A 30-day mobile cardiac customer service agent analyzed. Interpretable data was 19 days, 5 [...] There was no atrial fibrillation observed. Interpreting Medical Oncology Physician: Dr. Ken Ramirez Regi Wilson MD CV VASCULAR ORDERABLES Final Res ult [facility] * HEPATITIS C ANTIBODY (06/28/2024 10:40 AM CDT) HEPATITIS C AB NON-REACTI VE NON-REACT DARIUS 06/28/2024 6:58 PM CDT [facility] Comment: ANTIBODIES TO HCV NOT DETECTED. DOES NOT EXCLUDE THE POSSIBILITY OF EXPOSURE TO HCV. 06/28/2024 10:4 0 AM CDT Regi Wilson MD LABORATORY Final Result Performing Organization Address [facility] Co de Phone Number [facility] [address] [place] [address], [phone] from Last 3 Months or Most Recently Relevant to Health Maintenance Insurance MEDICARE [facility] Care Teams Sales Office Assistant Relationship Specialty Start Date End Date Regi Wilson MD [address] [address] PCP - General INTERNAL MEDICINE 05/16/24
--- OUTSIDE RECORDS SUMMARY | 2024-11-23 14:47 | XMS_ITS | Referral Summary ---
Author Organization [facility] Address [address] [place] [address] Care Team Providers Care Interpreter Name Role Phone Regi Sosa MD Primary Care Provider [phone] Encounters Date Type Department Care Team Description 10/11/2024 Telephone [facility] [facility] [address] Floor [address] [place] [address] Ned Silva 10/01/2024 1:45 PM RESEARCH CENTER PARTNER Office Visit [facility] [place] [address] [facility] [address] [place] [address] Jessie Engle NP Memory loss (Primary Dx) 09/24/2024 Telephone [facility] [address] [facility] 6th [place] [address] [place] [address] Ned Silva from Last 3 Months Allergies Active Allergy [...] on file Legal Sex Male 10:35 PM RESEARCH CENTER PARTNER Gender Identity Not on file Sexual Orientation Not on file Last Filed Vital Signs Vital Sign Reading Time Taken Comments Blood Pressure 134/60 10/01/2024 1:53 PM RESEARCH CENTER PARTNER Pulse 62 10/01/2024 1:53 PM RESEARCH CENTER PARTNER Temperature 36.2 C (97.2 F) 10/01/2024 1:53 PM RESEARCH CENTER PARTNER Respiratory Rate - - Oxygen Saturation - - Inhaled Oxygen Concentration - - Weight 65.8 kg (145 lb) 10/01/2024 1:53 PM RESEARCH CENTER PARTNER Height 167.6 cm (5' 5.98 ) 10/01/2024 1:53 PM CS T Body Mass Index 23.41 10/01/2024 1:53 PM RESEARCH CENTER PARTNER Plan of Treatment Not on file Insurance MEDICARE BCBS FEDERAL [facility] MEDICARE MEDICARE [facility] FEDERAL Care Teams Interpreter Relationship Specialty Start Date End Date Regi Sosa MD [address] [place] [address] PCP - General Internal Medicine 08/01/24
--- OUTSIDE RECORDS SUMMARY | 2024-11-23 14:47 | XMS_ITS | Encounter Summary ---
Author Organization [facility] Address [address] [place] [address] Care Team Providers Care Cpa Tax Name Role Phone Regi Sosa MD Primary Care Provider [phone] Reason for Visit * Reason Onset Date Comments Orders 11/19/2024 Returned Call 11/19/2024 Encounter Details Date Type Department Care Team (Late st Contact Info) Description 11/19/2024 Telephone [facility] Multispecialty Care - [place] [address] [address] [place] [address] [place] [address] [place] [address] [address] [place], [place] [id number] Orders; Returned Call Social History Tobacco Use Types Packs/Day Years Used Date Smoking Tobacco: Never Smokeless Tobacco: Never Comments:Counseled by Dr. Rhona rodriguez. AUDIT-C Answer Date Recorded Q1: How often [...] on file documented as of this encounter Progress Notes * Trisha Savage MA - 11/22/2024 12:39 PM CDT seen * Neva Vasquez - 11/22/2024 9:00 AM CDT Noelle Holly From [facility] [phone] FAX: [phone] is checking on the status of the Occupational Referral with updated diagnosis code. It was explained that the patient has an appointment to see the provider tomorrow November 23 and at that appointment she will diagnose what the patient needs occupational therapy for and a referral will be generated at that time. * Neva Vasquez - 11/19/2024 9:47 AM CDT The patient's called back about the appointment and need for it. I explained that to get a proper diagnosis for Occupational Therapy the doctor needs to see the patient in the office. She voice understanding. * Cynthia Huber MA - 11/19/2024 9:24 AM CDT Pt has to come in for an appointment before can we do a referral * Vera Lombardi - 11/19/2024 9:17 AM CDT Updated dx needs for occupational tx-cannot be cognitive. Needs specific for OT. Call Noelle with any questions [phone]. Please fax new order to [phone]. documented in this encounter Plan of Treatment Upcoming Encounters Date Type Department Care Team (Late st Contact Info) Description 01/23/2025 1:00 PM CDT Office Visit [facility] Mult[facility] Care - [address] [place] [address] Regi Sosa MD [address] [address] documented as of this encounter Visit Diagnoses Not on filedocumented in this encounter Additional Health Concerns Assessment Noted Time PHQ-9 Depression Total Score: 0 06/28/20 24 11:59 AM CDT documented as of this encounter Care Teams Cpa Tax Relationship Specialty Start Date End Date Regi Sosa MD [address] [address] PCP - General INTERNAL MEDICINE 05/16/24 documented as of this encounter
--- OUTSIDE RECORDS SUMMARY | 2024-11-23 14:47 | XMS_ITS | Encounter Summary ---
Author Organization [facility] Address [address] [place] [address] Care Team Providers Care Staff Cytotechnologist Name Role Phone Regi Sosa MD Primary Care Provider [phone] Reason for Visit * Reason Onset Date Comments Lab Order 11/23/2024 Encounter Details Date Type Department Care Team (Late st Contact Info) Description 11/23/2024 Telephone [facility] Multispecialty Care - [place] [address] [address] [place], [place] [id number] [place] [address] [place] [address] [address] [place], [place] [id number] Lab Order Social History Tobacco Use Types Packs/Day Years [...] on file documented as of this encounter Functional Status * Question Answer Date of Assessment Author Status Do you have serious difficulty walking or climbing stairs? No 11/23/2024 12:57 PM CDT Trisha Savage, CHAITANYA Acti ve Do you have difficulty dressing or bathing? No 11/23/2024 12:57 PM Trisha Dupont MA Active Because of a physical, mental, or emotional condition, do you have difficulty doing errands alone such as visiting a doctor's office or shopping? No 11/23/2024 12:57 PM CDT Esthela Savage MA Active * Are you deaf or do you have serious difficulty hearing Answer Date of Assessment Author Status Yes 11/23/2024 12:57 PM Trisha Dupont M A Active * Are you blind or do you have serious difficulty seeing, even when wearing glasses? Answer Date of Assessment Author Status No 11/23/2024 12:57 PM Trisha Dupont M A Active * Do you have serious difficulty walking or climbing stairs? Answer Date of Assessment Author Status No 11/23/2024 12:57 PM Trisha Dupont M A Active * Do you have difficulty dressing or bathing? Answer Date of Assessment Author Status No 11/23/2024 12:57 PM Trisha Dupont M A Active * Because of a physical, mental, or emotional condition, do you have difficulty doing errands alone such as visiting a doctor's office or shopping? Answer Date of Assessment Author Status No 11/23/2024 12:57 PM Trisha Dupont M A Active documented as of this encounter Mental Status * Question Answer Entry Date Author Status Because of a physical, mental, or emotional condition, do you have serious difficulty concentrating, remembering, or making decisions? Yes 11/23/2024 12:57 PM Trisha Dupont MA Active * Because of a physical, mental, or emotional condition, do you have serious difficulty concentrating, remembering, or making decisions? Answer Entry Date Author Status Yes 11/23/2024 12:57 PM Trisha Dupont M A Active documented in this encounter Plan of Treatment Upcoming Encounters Date Type Department Care Team (Late st Contact Info) Description 01/23/2025 1:00 PM CDT Office Visit [facility] Multispecialty Care - [address] [place] [address] Regi Sosa MD [address] [address] documented as of this encounter Visit Diagnoses Not on filedocumented in this encounter Additional Health Concerns Assessment Noted Time PHQ-9 Depression Total Score: 4 11/24/19 25 1:08 PM CDT documented as of this encounter Care Teams Staff Cytotechnologist Relationship Specialty Start Date End Date Regi Sosa MD [address] [address] PCP - General INTERNAL MEDICINE 05/16/24 documented as of this encounter
--- OUTSIDE RECORDS SUMMARY | 2024-11-23 14:47 | XMS_ITS | Encounter Summary ---
Author Organization [facility] Address [facility] [place] [address] Care Team Providers Care Capital Campaign Fundraiser Name Role Phone Regi Sosa MD Primary Care Provider [phone] Reason for Referral * Consultation (Routine) - New Request Specialty Diagnoses / Procedures Referred By Contac t Referred To Contact NEUROPSYCHOLOGY Diagnoses Other insomnia Mild episode of recurrent major depressive disorder Procedures OFFICE/OUTPATIENT NEW LOW MDM 30-44 MINUTES OFFICE/OUTPT VISIT,NEW,LEVL IV OFFICE/OUTPT VISIT,NEW,LEVL V OFFICE/OUTPT VISIT,EST,LEVL III OFFICE/OUTPT VISIT,EST,LEVL IV OFFICE/OUTPT VISIT,EST,LEVL V Regi Sosa MD [address] [address] Phone: tel: fax: Referral ID Status Reason Start Date Expiration Date Visits Requested Visits Authorized [id number] New Request Specialty Services 11/23/2024 12/23/2025 1 1 * Consultation (Urgent) - New Request Specialty Diagnoses / Procedures Referred By Contact Referred To Contact SLEEP & RESPIRATORY CARE Diagnoses Other insomnia Procedures OFFICE/OUTPATIENT NEW LOW MDM 30-44 MINUTES OFFICE/OUTPT VISIT,NEW,LEVL IV OFFICE/OUTPT VISIT,NEW,LEVL V OFFICE/OUTPT VISIT,EST,LEVL III OFFICE/OUTPT VISIT,EST,LEVL IV OFFICE/OUTPT VISIT,EST,LEVL V Regi Sosa MD [address] [address] Phone: tel: fax: [facility] - [address] [place] [address] Phone: tel: fax: Referral ID Status Reason Start Date Expiration Date Visits Requested Visits Authorized [id number] New Request Specialty Services 11/23/2024 12/23/2025 1 1 Reason for Visit * Reason Comments Memory Dysfunction Encounter Details Date Type Department Care Team (Latest Contact Info) Description 11/23/2024 11:20 AM CDT Office Visit [facility] Multispecialty Care - [place] [address] [address] [place] [address] Regi Sosa MD [address] [place] [address] Memory Dysfunction Social History Tobacco Use Types Packs/Day Years Used Date Smoking Tobacco: Never Smokeless Tobacco: Never Tobacco Cessation:Counseling Given: No Comments:Counseled by Dr. Sosa. AUDIT-C Answer Date [...] on file documented as of this encounter Last Filed Vital Signs Vital Sign Reading Time Taken Comments Blood Pressure 119/63 11/23/2024 11:03 AM CDT Pulse 57 11/23/2024 11:03 AM CDT Temperature 36.9 C (98.4 F) 11/23/2024 11:03 AM CDT Respiratory Rate - - Oxygen Saturation 98% 11/23/2024 11: 03 AM CDT Inhaled Oxygen Concentration - - Weight 68.4 kg (150 lb 12.8 oz) 025 11:03 AM CDT Height 167.6 cm (5' 6 ) 11/23/2024 11:0 3 AM CDT Body Mass Index 24.34 11/23/2024 11:03 AM CDT documented in this encounter Functional Status * Question Answer Date of Assessment Author Status Do you have serious difficulty walking or climbing stairs? No 11/23/2024 12:57 PM CDT Trisha Savage MA Acti ve Do you have difficulty dressing or bathing? No 11/23/2024 12:57 PM LUIS FELIPET Trisha Savage MA Active Because of a physical, mental, or emotional condition, do you have difficulty doing errands alone such as visiting a doctor's office or shopping? No 11/23/2024 12:57 PM LUIS FELIPET Esthela Savage MA Active * Are you deaf or do you have serious difficulty hearing Answer Date of Assessment Author Status Yes 11/23/2024 12:57 PM CDT Trisha Savage M A Active * Are you blind or do you have serious difficulty seeing, even when wearing glasses? Answer Date of Assessment Author Status No 11/23/2024 12:57 PM CDTrisha Lazo M A Active * Do you have serious difficulty walking or climbing stairs? Answer Date of Assessment Author Status No 11/23/2024 12:57 PM Trisha Dupont M A Active * Do you have difficulty dressing or bathing? Answer Date of Assessment Author Status No 11/23/2024 12:57 PM CDTrisha Lazo M A Active * Because of a [...] or making decisions? Yes 11/23/2024 12:57 PM CDTrisha Lazo MA Active * Because of a physical, mental, or emotional condition, do you have serious difficulty concentrating, remembering, or making decisions? Answer Entry Date Author Status Yes 11/23/2024 12:57 PM CDT Trisha Savage M A Active documented in this encounter Patient Instructions * Patient Instructions* Regi Sosa MD - 11/23/2024 11:20 AM CDT Call [phone] to follow up with any questions regarding the occupational therapy and speech therapy questions. Your CPAP machine order has been sent to [facility]. Please follow up with cardiology at [facility] for your memory issues. Please start taking wellbutrin. documented in this encounter Plan of Treatment Upcoming Encounters Date Type Department Care Team (Late st Contact Info) Description 01/23/2025 1:00 PM CDT Office Visit [facility] Multispecialty Care [place] [address] [address] [place] [address] Regi Sosa MD [address] [place] [address] Scheduled Orders Name Type Priority Associated Diagnoses Orde r Schedule COMPREHENSIVE METABOLIC PANEL Lab Routine Other insomnia Mixed hyperlipidemia Screening for hyperlipidemia Ordered: 11/23/2024 Scheduled Referrals Name Type Priority Associated Diagnoses Orde r Schedule Ambulatory referral to Pulmonology ([facility]) Referral Routine Other insomnia Ordered: 11/23/2024 Ambulatory referral to Neuropsychology Referral Routine Other insomnia Mild episode of recurrent major depressive disorder Ordered: 11/23/2024 documented as of this encounter Visit Diagnoses Diagnosis Other insomnia- Primary Mild episode of recurrent major depressive disorder Mixed hyperlipidemia 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
--- OUTSIDE RECORDS SUMMARY | 2024-11-23 14:47 | XMS_ITS | Encounter Summary ---
Author Organization [facility] Address [address] [place] [address] Care Team Providers Care Knotting Machine Operator Portable Name Role Phone Regi Sosa MD Primary Care Provider [phone] Encounter Details Date Type Department Care Team (Latest Contact Info) Description 11/23/2024 Travel Social History Tobacco Use Types Packs/Day Years [...] or climbing stairs? No 11/23/2024 12:57 PM LUIS FELIPET Trisha Savage MA Acti ve Do you have difficulty dressing or bathing? No 11/23/2024 12:57 PM Trisha Dupont MA Active Because of a physical, mental, or emotional condition, do you have difficulty doing errands alone such as visiting a doctor's office or shopping? No 11/23/2024 12:57 PM Esthela Dupont MA Active * Are you deaf or do you have serious difficulty hearing Answer Date of Assessment Author Status Yes 11/23/2024 12:57 PM CDT Trisha Savage M A Active * Are you blind or do you have serious difficulty seeing, even when wearing glasses? Answer Date of Assessment Author Status No 11/23/2024 12:57 PM CDT Trisha Savage M A Active * Do you have serious difficulty walking or climbing stairs? Answer Date of Assessment Author Status No 11/23/2024 12:57 PM CDT Trisha Savage M A Active * Do you have difficulty dressing or bathing? Answer Date of Assessment Author Status No 11/23/2024 12:57 PM CDT Trisha Savage M A Active * Because of a physical, mental, or emotional condition, do you have difficulty doing errands alone such as visiting a doctor's office or shopping? Answer Date of Assessment Author Status No 11/23/2024 12:57 PM CDT Trisha Savage M A Active documented as of this encounter Mental Status * Question Answer Entry Date Author Status Because of a physical, mental, or emotional condition, do you have serious difficulty concentrating, remembering, or making decisions? Yes 11/23/2024 12:57 PM CDT Trisha Savage MA Active * Because of a physical, mental, or emotional condition, do you have serious difficulty concentrating, remembering, or making decisions? Answer Entry Date Author Status Yes 11/23/2024 12:57 PM CDT Trisha Savage M A Active documented in this encounter Plan of Treatment Upcoming Encounters Date Type Department Care Team (Late st Contact Info) Description 01/23/2025 1:00 PM CDT Office Visit [facility] Multispecialty Care - [place] [address] [address] [place] [address] Regi Sosa MD [address] [place] [address] [address] [place] [address] documented as of this encounter Visit Diagnoses Not on filedocumented in this encounter Additional Health Concerns Assessment Noted Time PHQ-9 Depression Total Score: 4 11/24/19 25 1:08 PM CDT documented as of this encounter Care Teams Knotting Machine Operator Portable Relationship Specialty Start Date End Date Regi Sosa MD [address] [address] PCP - General INTERNAL MEDICINE 05/16/24 documented as of this encounter
[2024-11-23 15:50] LABS: Alanine Aminotransferase 28 U/L (6-50); Albumin Level 4.2 g/dL (3.5-5.1); Alkaline Phosphatase 85 U/L (38-126); Anion Gap 7 mmol/L (4-12); Aspartate Amino Transferase 33 U/L (17-59); Bilirubin,Total 0.4 mg/dL (0.2-1.3); Blood Urea Nitrogen 24 mg/dL (9-20); Calcium 9.5 mg/dL (8.4-10.2); Carbon Dioxide 30 mmol/L (22-30); Chloride 102 mmol/L (98-107); Estimated Glomerular Filt Rate > 60; Glucose 104 mg/dL (65-110); Sodium 139 mmol/L (137-145)
== END 2024-11-23 14:42 | disposition home or self-care (01) ==
PROVIDERS: Visit Provider Internal Medicine
DX: G47.09 Other insomnia (principal); E78.2 Mixed hyperlipidemia; Z13.220 Encounter for screening for lipoid disorders
CPT/HCPCS: 36415; 80053

== ENCOUNTER 2024-12-14 09:44 | Outpatient (CLI) | payer MEDICARE, BC, SELFPAY ==
--- OUTSIDE RECORDS SUMMARY | 2024-12-14 09:49 | XMS_ITS | Clinical Summary ---
Author Organization [facility] [employer] Address [address] [place] [address] Care Team Providers Care Restaurant Crew Name Role Phone Regi Sosa MD Primary Care Provider [phone] Allergies Active Allergy Reactions Criticality Noted Date [...] Type Department Care Team Description 10/11/2024 Telephone [facility] [place] [address] [place] [address] Ned Silva 10/01/2024 1:45 PM RESTAURANT CREW Office Visit [facility] [address] [place] [address] Jessie Engle NP Memory loss (Primary Dx) 09/24/2024 Telephone [facility] [address] [facility] 6[address] [place] [address] [place] [address] Ned Silva from Last 3 Months Surgical History Surgery Date Site/Laterality Comments ME CORONARY ARTERY BYPASS 1 CORONARY VENOUS GRAFT [...] on file Legal Sex Male 10:35 PM RESTAURANT CREW Gender Identity Not on file Sexual Orientation Not on file Obstetrics History Last Filed Vital Signs Vital Sign Reading Time Taken Comments Blood Pressure 134/60 10/01/2024 1:53 PM RESTAURANT CREW Pulse 62 10/01/2024 1:53 PM RESTAURANT CREW Temperature 36.2 C (97.2 F) 10/01/2024 1:53 PM RESTAURANT CREW Respiratory Rate - - Oxygen Saturation - - Inhaled Oxygen Concentration - - Weight 65.8 kg (145 lb) 10/01/2024 1:53 PM RESTAURANT CREW Height 167.6 cm (5' 5.98 ) 10/01/2024 1:53 PM CS T Body Mass Index 23.41 10/01/2024 1:53 PM RESTAURANT CREW Plan of Treatment Health Maintenance Due Date [...] , 06/03/2023, Additional history exists Insurance MEDICARE [facility] Address: [address] [place] [address] [facility] MEDICARE MEDICARE [facility] Member Subscriber Plan / Payer (Ef fective 2022-) Name:Cheli Virgil Caal Relation to Subscriber:Self Name:Virgil Bower JrLaureen Payer ID:[id number] (NAIC) Group ID:[id number] Type:beSUCCESS Address: [address] [place] [id number] Care Teams Restaurant Crew Relationship Specialty Start Date End Date Regi Sosa MD [address] [place] [address] PCP - General Internal Medicine 08/01/24
--- OUTSIDE RECORDS SUMMARY | 2024-12-14 09:49 | XMS_ITS | Clinical Summary ---
Author Organization [facility] Address [address] [place] [address] Care Team Providers Care Payroll Master Name Role Phone Regi Sosa MD Primary Care Provider [phone] Allergies Active Allergy Reactions Criticality Noted Date [...] DIRECTED BY DOCTOR, Route to Pharmacy Electronically, [id number], [id number], Instructions Replace Required Details, 167.1, cm, 11/03/23 12:44:00 TYPEWRITER ALIGNER, Height, 65.4, kg, 11/03/23 12:44:00 TYPEWRITER ALIGNER, Weight 01/04/20 24 Active Brea-3 Fatty Acids (RA FISH OIL) 1000 MG Cap Take by mouth. Activ e terbinafine (LAMISIL) 250 MG tablet Take 1 tablet (250 mg total) by mouth daily. 05/09/20 24 Active Menaquinone-7 (VITAMIN K2 OR) Take 90 mcg by mouth. Active Magnesium 200 MG Tab Active metoprolol tartrate (LOPRESSOR) 25 MG tabletIndications:C oronary artery disease involving [place] coronary artery with angina pectoris, unspecified whether [place] or transplanted heart,Primary hypertension Take 0.5 tablets (12.5 mg total) by mouth 2 (two) times daily. 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 90 tablet 1 08/03/20 24 Active CPAP DEVICE, DME,Indications:Obs tructive sleep apnea 1 Device by Does not apply route [...] 2 mL 2 07/10/20 24 025 Disconti nued(Reo rder) Active Problems Problem Noted Date Diagnosed Date Arteriosclerosis of coronary artery 06/28/2024 Asynchronous valve closure syndrome 06/28/2024 CAD in [place] artery 05/15/2024 Hypertension 05/15/2024 Mixed hyperlipidemia 05/15/2024 S/P CABG x 3 05/15/2024 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/2022 Resolved Problems Problem Noted Date Diagnosed Date Resolved Date Statin intolerance 05/15/2024 4 Encounters Date Type Department Care Team Description 11/27/2024 Scan [facility] INFO SRVCS Scanned, Doc Med Group 11/27/2024 Telephone [facility] Multispecialty Care - [place] [address] [place] [address] Regi Sosa MD Referral 11/23/2024 11:20 AM CDT Office Visit [place] [address] [address] [facility] [address] [place] [address] Regi Sosa MD Memory Dysfunction; Sleep Problem; Hyperlipidemia; Coronary Artery Disease 11/23/2024 Scan [facility] HEALTH INFO SRVCS Scanned, Doc [facility] Lab (SCAN) 11/23/2024 Telephone [place] [address] [address] [facility] [address] [place] [address] Regi Sosa MD Lab Order 11/23/2024 Travel 11/19/2024 Telephone [place] [address] [place] [address] [address] [place] [address] Regi Sosa MD Orders; Returned Call 11/16/2024 Telephone [place] [address] [address] [address] [address] [place] [address] Regi Sosa MD Orders 11/15/2024 Telephone [place] [address] [facility] [address] [place] [address] Regi Sosa MD Referral 11/13/2024 Telephone [place] [address] [address] [address] [address] [place] [address] Regi Sosa MD Follow Up Call 11/09/2024 Telephone [place] [address] [address] [facility] [address] [place] [address] Regi Sosa MD Referral 11/07/2024 Scan [facility] HEALTH INFO SRVCS Scanned, Doc Med Group 10/30/2024 Telephone [place] [address] [address] [facility] [address] [place] [address] Regi Sosa MD Follow Up Call 10/30/2024 [facility] [place] [address] [address] [facility] [address] [place] [address] Regi Sosa MD Results 10/25/2024 Telephone [place] [address] [address] [facility] [address] [place] [address] Regi Sosa MD Follow Up Call 10/02/2024 Scan HEALTH INFO SRVCS Scanned, Doc Med [facility] Sleep Study (SCAN) 10/02/2024 Telephone [place] [address] [address] [facility] [address] [place] [address] Regi Sosa MD Medication Information 09/17/2024 Telephone [place] [address] [address] [facility] [address] [place] [address] Regi Sosa MD Results from Last 3 Months Immunizations Immunization Administration Dates Next Due Abrysvo Respiratory Syncytia l Virus (RSV) 0.5 mL, PF 07/26/2024 Influenza (Generic) 06/03/2023,,04/29/2021,2019,05/10/2018,06/06/2017,06/09/2016 Influenza Adult (Generic) 06/21/2024,05/16/2024 MODERNA COVID-19 BIVALENT (1 2+), MRNA, LNP-S, PF 12/21/2021 MODERNA COVID-19 BIVALENT (6 m-5y), MRNA, LNP-S, PF 12/21/2021 Pneumococcal (Prevnar 13) 11/22/2014 Zoster (Zostavax) [address] Unt/0.65Ml 06/14/2018 Social History Tobacco Use Types [...] Respiratory Rate 18 08/03/2024 10:5 0 AM TYPEWRITER ALIGNER Oxygen Saturation 98% 11/23/2024 11: 03 AM [...] Description 01/23/2025 1:00 PM CDT Office Visit [facility] Multispecialty Care - [place] [address] [address] [place] [address] Regi Sosa MD [address] [place] [address] [address] [place] [address] 06/10/2025 11:20 AM CDT Office Visit [facility] Multispecialty Care - [facility] [address] [place] [id number] Andre Allen MD [address] [facility] [address] [address] [place] [address] Health Maintenance Due Date Last Done Comments ASCVD Statin 1950 DTaP, Tdap and Td Vaccines (1 - Tdap) 1969 Annual Medicare Wellness Visit 2013 Pneumococcal Vaccine: 50+ Years (2 of 2 - PPSV23) 01/17/2015 11/22/2014 Zoster Vaccines (2 of 3) 08/09/2018 06/14/2018 COVID-19 Vaccine ( season) 2024 12/21/2021, 12/21/2021, 07/02/2021, Additional history exists Hepatitis C Completed 06/28/2024 RSV Immunization or 60+ Years Completed 07/26/2024 PHQ-2 (Physician [place]) Completed 11/23/2024 Meningococcal B Vaccine Aged Out No l onger eligible based on patient's age to complete this topic Meningococcal Vaccine Aged Out No chuckie mariana eligible based on patient's age to complete this topic RSV Immunizations Under 20 Months Aged Out No longer eligible based on patient's age to complete this topic Procedures Procedure Name Priority Date/Time Associated Diagnosis Comments OUTSIDE LAB (SCAN ORDER) 11/23/2024 OUTSIDE LAB (SCAN ORDER) 11/23/2024 BONE DENSITY GENERIC (SCAN ORDER) 11/07/2024 SLEEP STUDY GENERIC (SCAN ORDER) 10/02/2024 SLEEP STUDY GENERIC (SCAN ORDER) 10/02/2024 POLYSOMNOGRAPHY 4 OR MORE PARAMETERS Routine 10/02/2024 12:00 AM TYPEWRITER ALIGNER Insomnia with sleep apnea HEPATITIS C ANTIBODY Routine 06/28/2024 10:40 AM CDT Need for hepatitis C screening test Drug therapy from Last 3 Months or Most Recently Relevant to Health Maintenance Results * OUTSIDE LAB (SCAN ORDER) (11/23/2024) Only the most recent of2 resultswithin the time period is included. 11/23/2024 [facility] Scanned SCANNING Final Resu lt * BONE DENSITY GENERIC (SCAN ORDER) (11/07/2024) Anatomical Region Laterality Modality Other 11/07/2024 us Doc [facility] Scanned SCANNING Final Resu lt * Diagnostic PSG (96996, [id number]) (10/02/2024 12:00 AM TYPEWRITER ALIGNER) 10/02/2024 Regi Sosa MD SLEEP CENTER ORDERABLES Final Re sult [facility] ONBASE * SLEEP STUDY GENERIC (SCAN ORDER) (10/02/2024) 10/02/2024 [facility] Scanned SCANNING Final Resu lt * SLEEP STUDY GENERIC (SCAN ORDER) (10/02/2024) 10/02/2024 Result [facility] Scanned SCANNING Final Resu lt * HEPATITIS C ANTIBODY (06/28/2024 10:40 AM CDT) HEPATITIS C AB NON-REACTI VE NON-REACT DARIUS 06/28/2024 6:58 PM CDT [facility] Comment: ANTIBODIES TO HCV NOT DETECTED. DOES NOT EXCLUDE THE POSSIBILITY OF EXPOSURE TO HCV. 06/28/2024 10:4 0 AM CDT Result [facility] Regi Sosa MD LABORATORY Final Result [facility] [address] [place] [address], [place] [phone] [id number] from Last 3 Months or Most Recently Relevant to Health Maintenance Insurance MEDICARE [facility] Care Teams Payroll Master Relationship Specialty Start Date End Date Regi Sosa MD [address] [facility] [address] [place] [id number] PCP - General INTERNAL MEDICINE 05/16/24
--- OUTSIDE RECORDS SUMMARY | 2024-12-14 09:49 | XMS_ITS | Encounter Summary ---
Author Organization [facility] Address [address] [place] [address] Phone Care Team Providers Care Machine Setter Supervisor Name Role Phone Regi Sosa MD Primary Care Provider [phone] Encounter Details Date Type Department Care Team (Late st Contact Info) Description 08/06/2024 Telephone [facility] [address] [place] [address] [place] [address] Licha Ambrosio Social History Tobacco Use Types Packs/Day Years Used Date Smoking Tobacco: Never Smokeless Tobacco: Never Sex and Gender Information Value Date Recorded Sex Assigned at Not on file Legal Sex Male 10:35 PM PRESS TENDER SMOKE SIGNAL Gender Identity Not on file Sexual Orientation Not on file documented as of this encounter Plan of Treatment Not on file documented as of this encounter Visit Diagnoses Not on filedocumented in this encounter Care Teams Machine Setter Supervisor Relationship Specialty Start Date End Date Regi Sosa MD [address] [place] [address] PCP - General Internal Medicine 08/01/24 documented as of this encounter
--- OUTSIDE RECORDS SUMMARY | 2024-12-14 09:49 | XMS_ITS | Clinical Summary ---
Author Organization [facility] field Address [address] [place] [address] Phone Care Team Providers Care Beaming Inspector Name Role Phone Erwin Araujo MD Primary Care Provider [phone] Allergies No known active allergies Medications niacin [...] by mouth one time only. Active Fish Oil-[place]-3 Fatty Acids 300-500 mg Capsule Take by [...] Relevant to Health Maintenance Insurance Care Teams Beaming Inspector Relationship Specialty Start Date End Date Erwin Araujo MD [address] [place] [id number] PCP - General 09/02/15
--- OUTSIDE RECORDS SUMMARY | 2024-12-14 09:49 | XMS_ITS | Referral Summary ---
Author Organization [facility] [employer] Address [address] [place] [address] Care Team Providers Care Surveillance Analyst Name Role Phone Regi Sosa MD Primary Care Provider [phone] Encounters Date Type Department Care Team Description 10/11/2024 Telephone [facility] [facility] [address] [place] [address] Ned Silva 10/01/2024 1:45 PM PLASTIC FABRICATOR Office Visit [facility] [place] [address] [facility] [address] [place] [address] Jessie Engle NP Memory loss (Primary Dx) 09/24/2024 Telephone [facility] [address] [facility] 6th [place] [address] [place] [address] Ned Silva from Last 3 [...] on file Legal Sex Male 10:35 PM PLASTIC FABRICATOR Gender Identity Not on file Sexual Orientation Not on file Last Filed Vital Signs Vital Sign Reading Time Taken Comments Blood Pressure 134/60 10/01/2024 1:53 PM PLASTIC FABRICATOR Pulse 62 10/01/2024 1:53 PM PLASTIC FABRICATOR Temperature 36.2 C (97.2 F) 10/01/2024 1:53 PM PLASTIC FABRICATOR Respiratory Rate - - Oxygen Saturation - - Inhaled Oxygen Concentration - - Weight 65.8 kg (145 lb) 10/01/2024 1:53 PM PLASTIC FABRICATOR Height 167.6 cm (5' 5.98 ) 10/01/2024 1:53 PM CS T Body Mass Index 23.41 10/01/2024 1:53 PM PLASTIC FABRICATOR Plan of Treatment Not on file Insurance MEDICARE BCBS FEDERAL [facility] MEDICARE MEDICARE [facility] FEDERAL Care Teams Surveillance Analyst Relationship Specialty Start Date End Date Regi Sosa MD [address] [place] [address] PCP - General Internal Medicine 08/01/24
--- OUTSIDE RECORDS SUMMARY | 2024-12-14 09:49 | XMS_ITS | Clinical Summary ---
Author Organization [facility] Address [address] [place] [address] Care Team Providers Care Spring Fitter Name Role Phone Erwin Araujo MD Primary Care Provider [phone] Joann Escobar Unavailable Manuel Kruger MD Unavailable [phone] [facility],non-owned Affiliates and Associated Physician Practices is amultiple site organization consisting of ambulatory clinics and hospital sitesin [place], [place], [place] and [place]. This disclosure is being madepursuant to the Care Everywhere program and may not contain all information available regarding this patient. Last updated 18.[facility] Allergies No known active allergies Medications * Be aware that medications may not be up to date on this document. Alwaysverify current medications with the patient. lisinopril (Prinivil; Zestril) 10 MG tablet Take [...] Take by mouth 2 times daily Active [place]-3 Fatty Acids (Fish Oil) 600 MG 700 [...] intolerance 09/06/2022 3 Keratitis 04/19/2018 09/06/2022 Immunizations Immunization Administration Dates Next Due COVID MODERNA BIVALENT [...] at Not on file Legal Sex Male 3:28 PM CDT Gender Identity Not on file [...] 2024 12/21/2021, 07/02/2021, 11/08/2020, Additional history exists DEPRESSION SCREENING 08/29/2024 INFLUENZA VACCINE (Season Ended) 2025 05/11/2021, 04/29/2021, 05/21/2020, Additional history exists HEPATITIS B VACCINE Aged Out No longe [...] on patient's age to complete this topic [place] [address] MEDICARE ANTHEM Care Teams Spring Fitter Relationship Specialty Start Date End Date Erwin Araujo MD [address] [place] [address] PCP - General Infectious Disease 09/02/22 Joann Escobar [address] [place] [id number] 09/02/22 Manuel Kruger MD [address] [place] [address] Cardiology 09/02/22
== END 2024-12-14 09:45 | disposition home or self-care (01) ==
LOC: ANHAUDIO 09:44
PROVIDERS: PCP Internal Medicine; Visit Provider Otolaryngology
DX: H90.3 Sensorineural hearing loss, bilateral (principal); G47.33 Obstructive sleep apnea (adult) (pediatric)
CPT/HCPCS: 92557; 92567

== ENCOUNTER 2024-12-24 10:30 | Outpatient (RCR) | payer MEDICARE, BC, SELFPAY ==
--- NOTE | 2024-11-27 11:46 | OTOPEVAL1 ---
Assessment and note entered by Jose Henao, TEMI/Anjum, CHT OT Evaluation Information Assessment Status Evaluation Diagnosis Cognitive Impairment, Fine motor skill loss Subjective Information Patient presents with his , who helps provide some of his history. He was recently diagnosed with mild cognitive impairment. They are being referred to a neurologist to evaluate his tremor and to rule in/out Parkinson's. They report a decline in his ability to dress, noting difficulties with left UE flexibility and coordination to put his arm through his coat sleeve and difficulty doing buttons. They notice his shoes frequently come untied and this is new for him. When they go for walks at the park he has a hard time keeping up with his . noticing difficulties with patient's attention and memory. He also has orders for [facility] OT Clinical Summary Patient referred to OT with dx of cognitive impairment, fine motor skill loss, and other signs and symptoms involving the nervous system. He presents today with his and they describe a decline in ADLs, particularly with dressing, describing a decline in his UE functional coordination. They also note his difficulties with attention and memory. Patient demonstrates normal and symmetrical bilateral UE strength. When completing gross and fine motor assessments he has a lag on the left, demonstrating reduced ROM and amplitude of movement when completing reciprocal and asymmetrical coordination activities. Skilled OT indicated to maximize functional safety, participation, and independence with ADLs via HEP instruction, adaptive ADL techniques, therapeutic exercises, and functional therapeutic activities. Plan of Care Interventions Therapeutic Exercise,Neuro Re-education, Therapeutic Activities OT Services Indicated Yes Treatment Frequency and 1x/week for 5 visits Duration These treatments will address the objective and functional deficits as defined above. The patient will be advanced safely and appropriately in order for the patient to progress towards his/her prior level of function. Additional exercises will be introduced and as well as a comprehensive home exercise program upon discharge, if needed, ?to ensure carryover of functional gains achieved in the clinic. This treatment plan has been reviewed and agreement upon by the patient.
--- NOTE | 2024-11-27 11:46 | OPREHPOC ---
Outpatient Therapy Plan of Care This is a Multidisciplinary Plan of Care that may contain components documented by all disciplines (PT, OT, and ST.) OT Problem 1 OT Problem #1 Knowledge Deficit OT Goal 1 Goal / Goal Update Patient/spouse to be independent with instructed materials. Target Visit 5 OT Problem 2 OT Problem #2 Impaired Coordination OT Goal 1 Goal / Goal Update Patient to improve gross motor coordination skills as demonstrated by being able to complete reciprocal walking around the track x1 lap with no cues. Target Visit 5 OT Goal 2 Goal / Goal Update Patient to improve fine motor coordination skills as measured by patient and his reporting less instances of his shoes coming untied as well as no instances of needing verbal cues to fix the buttons on his shirt. Target Visit 5
--- NOTE | 2024-12-24 10:56 | OTOPDC ---
Assessment and note entered by TEMI Pradhan/Anjum, CHT OT Discharge Summary 12/24/24 Assessment Status Discharge Diagnosis Cognitive Impairment, Fine motor skill loss Subjective Information Patient reports noticing an improvement in ADLs. He reports he has been tying his shoes better and they come untied less. He reports him and his have been coming up with a system to have external reminders to make sure he is closing the garage door and making sure he has his wallet and keys when he leaves the house. He reports improvements with gross motor skills when it comes to dressing and getting his UEs in his jackets/ coats. He also notes that he is having an easier time keeping up with his when they go on walks at the park. Assessment OT Clinical Summary Patient referred to OT with dx of cognitive impairment, fine motor skill loss, and other signs and symptoms involving the nervous system. He presents today after 4 treatment sessions. He reports feeling like he is moving better and performing well with his ADLs. Reviewed HEP today. Plan to wrap up OT and D/C with patient independent with HEP. He plans to now have ST services for attention and memory. Plan of Care OT Services Indicated No
--- NOTE | 2024-12-25 11:00 | OPREHPOC ---
Outpatient Therapy Plan of Care This is a Multidisciplinary Plan of Care that may contain components documented by all disciplines (PT, OT, and ST.) OT Problem 1 OT Problem #1 Knowledge Deficit OT Goal 1 Goal / Goal Update Patient/spouse to be independent with instructed materials. ---OT D/C 12/24/24-- Met Target Visit 5 OT Problem 2 OT Problem #2 Impaired Coordination OT Goal 1 Goal / Goal Update Patient to improve gross motor coordination skills as demonstrated by being able to complete reciprocal walking around the track x1 lap with no cues. ---OT D/C 12/24/24-- Not met Target Visit 5 OT Goal 2 Goal / Goal Update Patient to improve fine motor coordination skills as measured by patient and his reporting less instances of his shoes coming untied as well as no instances of needing verbal cues to fix the buttons on his shirt. ---OT D/C 12/24/24-- Met Target Visit 5
== END 2024-12-24 11:32 | disposition home or self-care (01) ==
LOC: ANHOT 10:30
PROVIDERS: Visit Provider Internal Medicine
DX: R41.89 Other symptoms and signs involving cognitive functions and awareness (principal)
CPT/HCPCS: 97110; 97112; 97167; 97530

== ENCOUNTER 2025-02-11 11:07 | Outpatient (CLI) | payer MEDICARE, BC, SELFPAY ==
[2025-02-11 11:48] LABS: Alanine Aminotransferase 24 U/L (6-50); Aspartate Amino Transferase 42 U/L (17-59)
--- OUTSIDE RECORDS SUMMARY | 2025-02-11 12:18 | XMS_ITS | Clinical Summary ---
Author Organization [facility] field Address [address] [place] [address] Phone Care Team Providers Care Watershed Coordinator Name Role Phone Erwin Araujo MD Primary Care Provider [phone] Allergies No known active allergies Medications niacin [...] by mouth one time only. Active Fish Oil-[place]-3 Fatty Acids 300-500 mg Capsule Take by [...] Relevant to Health Maintenance Insurance Care Teams Watershed Coordinator Relationship Specialty Start Date End Date Erwin Araujo MD [address] [place] [id number] PCP - General 09/02/15
--- OUTSIDE RECORDS SUMMARY | 2025-02-11 12:18 | XMS_ITS | Referral Summary ---
Author Organization [facility] [employer] Address [address] [place] [address] Care Team Providers Care Retail Assistant Store Manager Name Role Phone Regi Sosa MD Primary Care Provider [phone] Allergies Active Allergy Reactions Criticality Noted Date [...] on file Legal Sex Male 10:35 PM FOUNTAIN ROLLER ASSEMBLER Gender Identity Not on file Sexual Orientation Not on file Last Filed Vital Signs Vital Sign Reading Time Taken Comments Blood Pressure 134/60 10/01/2024 1:53 PM FOUNTAIN ROLLER ASSEMBLER Pulse 62 10/01/2024 1:53 PM FOUNTAIN ROLLER ASSEMBLER Temperature 36.2 C (97.2 F) 10/01/2024 1:53 PM FOUNTAIN ROLLER ASSEMBLER Respiratory Rate - - Oxygen Saturation - - Inhaled Oxygen Concentration - - Weight 65.8 kg (145 lb) 10/01/2024 1:53 PM FOUNTAIN ROLLER ASSEMBLER Height 167.6 cm (5' 5.98) 10/01/2024 1:53 PM CS T Body Mass Index 23.41 10/01/2024 1:53 PM FOUNTAIN ROLLER ASSEMBLER Plan of Treatment Not on file Insurance MEDICARE [facility] FEDERAL MEDICARE MEDICARE [facility] FEDERAL Care Teams Retail Assistant Store Manager Relationship Specialty Start Date End Date Regi Sosa MD [address] [place] [address] PCP - General Internal Medicine 08/01/24
--- OUTSIDE RECORDS SUMMARY | 2025-02-11 12:18 | XMS_ITS | Clinical Summary ---
Author Organization [facility] [employer] Address [address] [place] [address] Care Team Providers Care Rotary Pump Operator Name Role Phone Regi Sosa MD Primary Care Provider [phone] Allergies Active Allergy Reactions Criticality Noted Date [...] Keratitis 04/19/2018 Ptosis of left eyelid 04/19/2018 Surgical History Surgery Date Site/Laterality Comments DE CORONARY ARTERY BYPASS 1 CORONARY VENOUS GRAFT CABG - (Added by TW Conv) EYE SURGERY BLEPHAROPTOSIS REPAIR Medical History Medical History Date Comments Personal history of other di seases of the circulatory system History of hypertension - (A dded by TW Conv) Cataract Hypertension Family History Medical History Relation Name Comments Heart disease Brother Dementia Father Heart disease Mother Relation Name Status Comments Brother Father Mother Social History Tobacco Use Types Packs/Day Years Used Date Smoking Tobacco: Never Smokeless Tobacco: Never Tobacco Cessation:Counseling Given: No Sex and Gender Information Value Date Recorded Sex Assigned at Not on file Legal Sex Male 10:35 PM SENIOR ACCOUNTANT Gender Identity Not on file Sexual Orientation Not on file Obstetrics History Last Filed Vital Signs Vital Sign Reading Time Taken Comments Blood Pressure 134/60 10/01/2024 1:53 PM SENIOR ACCOUNTANT Pulse 62 10/01/2024 1:53 PM SENIOR ACCOUNTANT Temperature 36.2 C (97.2 F) 10/01/2024 1:53 PM SENIOR ACCOUNTANT Respiratory Rate - - Oxygen Saturation - - Inhaled Oxygen Concentration - - Weight 65.8 kg (145 lb) 10/01/2024 1:53 PM SENIOR ACCOUNTANT Height 167.6 cm (5' 5.98) 10/01/2024 1:53 PM CS T Body Mass Index 23.41 10/01/2024 1:53 PM SENIOR ACCOUNTANT Plan of Treatment Health Maintenance Due Date [...] , 06/03/2023, Additional history exists Insurance MEDICARE [facility] FEDERAL [employer] Address: [facility] [id number] [place] [address] [facility] [employer]AL [employer] Address: [facility] [id number] [place] [address] MEDICARE MEDICARE [facility] Care Teams Rotary Pump Operator Relationship Specialty Start Date End Date Regi Sosa MD [address] [place] [address] PCP - General Internal Medicine 08/01/24
--- OUTSIDE RECORDS SUMMARY | 2025-02-11 12:18 | XMS_ITS | Encounter Summary ---
Author Organization [facility] Address [address] [place] [address] Phone Care Team Providers Care Photo Checker And Assembler Name Role Phone Regi Sosa MD Primary Care Provider [phone] Encounter Details Date Type Department Care Team (Late st Contact Info) Description 08/06/2024 Telephone [facility] [address] [facility] 6th [place] [address] [place] [address] Licha Ambrosio Social History Tobacco Use Types Packs/Day Years Used Date Smoking Tobacco: Never Smokeless Tobacco: Never Sex and Gender Information Value Date Recorded Sex Assigned at Not on file Legal Sex Male 10:35 PM RUG DYER Gender Identity Not on file Sexual Orientation Not on file documented as of this encounter Plan of Treatment Not on file documented as of this encounter Visit Diagnoses Not on filedocumented in this encounter Care Teams Photo Checker And Assembler Relationship Specialty Start Date End Date Regi Sosa MD [address] [place] [address] PCP - General Internal Medicine 08/01/24 documented as of this encounter
--- OUTSIDE RECORDS SUMMARY | 2025-02-11 12:18 | XMS_ITS | Clinical Summary ---
Author Organization [facility] Address [address] [place] [address] Care Team Providers Care Human Resource Officer Name Role Phone Erwin Araujo MD Primary Care Provider Joann Escobar Unavailable Manuel Kruger MD Unavailable [phone] Source Comments [facility],non-owned Affiliates and Associated Physician Practices is amultiple site organization consisting of ambulatory clinics and hospital sitesin [place], [place], [place] and [place]. This disclosure is being madepursuant to the Care Everywhere program and may not contain all information available regarding this patient. Last updated 18.[facility] Allergies No known active allergies Medications [...] Take by mouth 2 times daily Active [place]-3 Fatty Acids (Fish Oil) 600 MG 700 [...] 6:00 AM CDT Height 167.6 cm (5' 6) 04/15/2023 6:00 AM CDT Body Mass Index 22.6 04/15/2023 6:00 AM CDT Plan of Treatment Health Maintenance Due Date Last Done Comments MEDICARE AWV 12 MONTHS 1950 HEPATITIS C SCREENING 05/13/1966 DTAP/TDAP/TD VACCINES (1 - Tdap) 1967 PNEUMOCOCCAL VACCINE 50+ (2 of 2 - PCV20 or PCV21) 11/23/2015 11/22/2014 ZOSTER VACCINE (2 of 3) [...] to complete this topic Insurance ANTHEM MEDICARE MEDICARE ANTHEM Care Teams Human Resource Officer Relationship Specialty Start Date End Date Erwin Araujo MD [address] [place] [address] PCP - General Infectious Disease 09/02/22 Joann Escobar [address] [place] [phone] 09/02/22 Manuel Kruger MD [address] [facility] [address] [place], [place] [id number] Cardiology 09/02/22
== END 2025-02-11 11:08 | disposition home or self-care (01) ==
PROVIDERS: PCP Internal Medicine; Visit Provider Podiatrist Foot & Ankle Surgery
DX: B35.1 Tinea unguium (principal)
CPT/HCPCS: 36415; 84450; 84460

== ENCOUNTER 2025-03-22 09:00 | Outpatient (RCR) | payer MEDICARE, BC, SELFPAY ==
--- NOTE | 2025-02-14 13:37 | OPREHPOC ---
Outpatient Therapy Plan of Care This is a Multidisciplinary Plan of Care that may contain components documented by all disciplines (PT, OT, and ST.) ST Problem 1 ST Problem #[address] Goal 1 Goal / Goal Update The patient will demonstrate the knowledge to participate/generalize techniques for home carry over of treatment plan. Target Visit [address] Problem #[address] Goal 1 Goal / Goal Update Cognition: 1. The patient will maintain sustained attention for structured tasks for 7-10 minutes with 80% minimal cues. 2. The patient will recall 2-3 pieces gutierrez information after 5 minute delay with compensatory techniques 80% minimal cues 3. Patient will complete functional sequencing with 80% minimal cues 4. The patient will complete structured functional math with 80% minimal cues. 5. The patient will processing information presented auditorily with 80% minimal cues Target Visit 10
--- NOTE | 2025-02-15 07:11 | OPREHPOC ---
Outpatient Therapy Plan of Care This is a Multidisciplinary Plan of Care that may contain components documented by all disciplines (PT, OT, and ST.) ST Problem 1 ST Problem #[address] Goal 1 Goal / Goal Update The patient will participate in home programming to improve the carry over/generalization of skills to the home environment. Target Visit [address] Problem #[address] Goal 1 Goal / Goal Update Cognition: 1. The patient will maintain sustained attention for structured tasks for 7-10 minutes with 80% minimal cues. 2. The patient will recall 2-3 pieces gutierrez information after 5 minute delay with compensatory techniques 80% minimal cues 3. Patient will complete functional sequencing with 80% minimal cues 4. The patient will complete structured functional math with 80% minimal cues. 5. The patient will processing information presented auditorily with 80% minimal cues Target Visit 10
--- NOTE | 2025-02-15 07:12 | STOPEVAL1 ---
Assessment and note entered by Nicole Batres, CURING PRESS OPERATOR Reported Pain Level Pain Score 0: Self Report Assessment ST Clinical Summary The patient is a 74 year old male referred for a cognitive evaluation and intervention. The patient and spouse report over the past few months they have noticed the patient has had increased difficulty recalling information, attending to and completing general home activities of everyday living, and processing spoken information. The patient was given the [facility] Cognitive evaluation in conjunction with the [facility] . The following areas were noted to have mild- moderate deficits: Delayed recall 70%, Sustained and Alternating attention 70%, Thought Organization 70% (Sequencing, Functional Math, and Auditory Processing). Speech services are recommended and discussed with the patient and family for 2x week x 10 visits to include Memory, Thought Organization, Attention/Concentration. Plan of Care Interventions Treatment for Cognitive Function ST Services Indicated Yes Treatment Frequency and 2x week/ 10 visits. Duration These treatments will address the objective and functional deficits as defined above. The patient will be advanced safely and appropriately in order for the patient to progress towards his/her prior level of function. Additional exercises will be introduced and as well as a comprehensive home exercise program upon discharge, if needed, ?to ensure carryover of functional gains achieved in the clinic. This treatment plan has been reviewed and agreement upon by the patient.
--- NOTE | 2025-03-22 10:32 | STOPREEVAL ---
Assessment and note entered by Nicole Batres, FABRICATION MIG WELDER Evaluation Information Assessment Status Re-evaluation Diagnosis R41.89 ICD-10 Condition Codes (ST) Dysphagia, pharyngoesophageal phase R13.14 Subjective Information The patient is a 74 year old male that was referred for a cognitive evaluation and intervention. The patient and spouse reported over the past few months they have noticed the patient has had increased difficulty recalling information, attending to, and completing general home activities of everyday living, and processing spoken information. The patient has been receiving speech services 2x a week for 10 visits to address attention/concentration, memory, sequencing, and functional math. A re-evaluation is being completed on this date to assess for continued speech services. Reported Pain Level Pain Score 0: Self Report Assessment ST Clinical Summary The patient is a 74 year old male that was referred for a cognitive evaluation and intervention. The patient and spouse reported over the past few months they have noticed the patient has had increased difficulty recalling information, attending to, and completing general home activities of everyday living, and processing spoken information. The patient has been receiving speech services 2x a week for 10 visits to address attention/concentration, memory, sequencing, and functional math. A re-evaluation is being completed on this date to assess for continued speech services. The patient was given the [facility] Cognitive Evaluation and the SLUMs. Results indicated improvement in the area of Memory improved from 80% to 90 % for immediate memory, short-term memory 75% to 85% , attention/concentration attending 3-5 minutes previously with 1-2 redirects now 10 minutes without redirect. Sequencing improved from 80% to 87% Thought organization improved to 85% and auditory processing was within normal limits. The patient scored a 22 on the SLUMs improved from a 20. Improvement noted in the areas of memory with the SLUMs test. The patient's spouse reports they have noticed an improvement in his sustained attention and ability to maintain his concentration. They still have concerns with the memory especially for short -term information and are agreeable to continuing treatment 1x a week for 10 additional visits. Treatment to focus on short-term recall, sustained attention/concentration and higher reasoning. Plan of Care Interventions Treatment for Cognitive Function ST Services Indicated Yes Treatment Frequency and 1x a week for 10 visits. Duration These treatments will address the objective and functional deficits as defined above. The patient will be advanced safely and appropriately in order for the patient to progress towards his/her prior level of function. Additional exercises will be introduced and as well as a comprehensive home exercise program upon discharge, if needed, ?to ensure carryover of functional gains achieved in the clinic. This treatment plan has been reviewed and agreement upon by the patient.
--- NOTE | 2025-03-22 10:34 | OPREHPOC ---
Outpatient Therapy Plan of Care This is a Multidisciplinary Plan of Care that may contain components documented by all disciplines (PT, OT, and ST.) ST Problem 1 ST Problem #[address] Goal 1 Goal / Goal Update The patient will participate in home programming to improve the carry over/generalization of skills to the home environment. Target Visit [address] Problem 2 ST Problem #[address] Goal 1 Goal / Goal Update Cognition: 1. The patient will maintain sustained attention for structured tasks for 7-10 minutes with 80% minimal cues. Updated 03-22-25 Goal Met 10 minutes 80% minimal cues. 2. The patient will recall 2-3 pieces gutierrez information after 5 minute delay with compensatory techniques 80% minimal cues Updated 03-22-25 Goal Met 2 pieces of information 80% minimal cues 3. Patient will complete functional sequencing with 80% minimal cues Updated 03-22-25 Goal Met 80% minimal cues 4. The patient will complete structured functional math with 80% minimal cues. Updated 03-22-25 Goal Met 85% minimal cues 5. The patient will processing information presented auditorily with 80% minimal cues Updated 03-22-25 Goal Met 90-100% independent. Target Visit [address] Goal 2 Goal / Goal Update New Goals 1. the patient will maintain sustained attention 10-15 minutes with 85% and minimal cues. 2. The patient will recall 3 gutierrez pieces of information at a 5 minute delay with 85% accuracy. 3. The patient will complete functional sequencing 90% accuracy 4. The patient will complete deductive reasoning tasks with 80% accuracy and minimal cues. 5. the patient will complete written organization tasks with 80% accuracy and minimal cues. Target Visit 20
--- NOTE | 2025-03-26 14:29 | STOPDC ---
Assessment and note entered by JULIAN Dupree Evaluation Information Assessment Status Discharge - Pt Not Present Assessment ST Clinical Summary The patient is a 74 year old male that was referred for a cognitive evaluation and intervention. The patient and spouse reported over the past few months they have noticed the patient has had increased difficulty recalling information, attending to, and completing general home activities of everyday living, and processing spoken information. The patient has been receiving speech services 2x a week for 10 visits to address attention/concentration, memory, sequencing, and functional math. A re-evaluation is being completed on this date to assess for continued speech services. The patient was given the [facility] Cognitive Evaluation and the SLUMs. Results indicated improvement in the area of Memory 80%-90 % for immediate memory, short-term memory 75% -85% , attention/concentration attending 3-5 minutes previously with 1-2 redirects now 10 minutes without redirect. Sequencing improved from 80% to 87% Thought organization improved to 85% and auditory processing was within normal limits. The patient scored a 22 on the SLUMs improved from a 20. Improvement noted in the are of memory of this test. The patient's spouse reports they have noticed and improvement in his sustained attention and ability to maintain his concentration. They still have concerns with the memory especially for short -term information and are agreeable to continuing treatment 1x a week for 10 additional visits. Treatment to focus on short-term recall, sustained attention/concentration and higher reasoning. The patient's spouse called [phone] and requested discharge at this time. Family feels they can continue with the HEP provided by [facility] [employer] [facility] at last visit without bi-weekly therapy sessions. Discharge speech services this date at family request. Plan of Care ST Services Indicated No
== END 2025-03-26 16:30 | disposition home or self-care (01) ==
LOC: ANHST 09:00
PROVIDERS: PCP Internal Medicine; Visit Provider Internal Medicine
DX: R41.89 Other symptoms and signs involving cognitive functions and awareness (principal)
CPT/HCPCS: 92507; 92523

== ENCOUNTER 2025-04-16 08:47 | Outpatient (CLI) | payer MEDICARE, BC, SELFPAY ==
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
== END 2025-04-16 08:48 | disposition home or self-care (01) ==
LOC: GOSHIMG 08:47
PROVIDERS: PCP Internal Medicine; Visit Provider Psychiatry & Neurology Neurology
DX: I67.82 Cerebral ischemia (principal); G31.9 Degenerative disease of nervous system, unspecified; I10 Essential (primary) hypertension; I25.10 Atherosclerotic heart disease of native coronary artery without angina pectoris; G20.A1 Parkinson's disease without dyskinesia, without mention of fluctuations; G62.9 Polyneuropathy, unspecified; Z87.828 Personal history of other (healed) physical injury and trauma
CPT/HCPCS: 70551